=== PATIENT | female | born 1955 | race Hispanic/Latino ===

== ENCOUNTER → 2016-11-07 | Outpatient (CLI) | payer MEDICARE, MEDICAID ==
--- NOTE | 2016-11-07 10:47 | RAD ---
EXAM DESCRIPTION: Right wrist series CLINICAL HISTORY: Right hand pain COMPARISON: None. TECHNIQUE: Three views were submitted for evaluation. FINDINGS: Healing styloid process fracture of ulna and distal radial fracture. The fracture lines are less apparent on today's exam. The scapholunate interval is again widened suggesting ligamentous injury. IMPRESSION: Healing distal radial and ulna fractures. Electronically signed by: Dani Rae MD 11/07/2016 10:45
--- NOTE | 2016-11-07 10:48 | RAD ---
EXAM DESCRIPTION: XR CHEST 2 VIEWS CLINICAL HISTORY: PERSISTENT COUGH COMPARISON: None Available. TECHNIQUE: PA/lateral FINDINGS: There is no cardiac or pulmonary abnormality. Mildly tortuous descending aorta. The lungs are clear. There is no effusion. Prior cervical fusion and bilateral lateral rotator cuff repair. IMPRESSION: No acute findings on today's study. Electronically signed by: Dani Rae MD 11/07/2016 10:46
== END ==
LOC: RAD 09:04
PROVIDERS: ATTEND Orthopaedic Surgery
DX: R06.00 Dyspnea, unspecified (principal); S52.501A Unspecified fracture of the lower end of right radius, initial encounter for closed fracture

== ENCOUNTER 2017-02-11 19:59 | Emergency (ER) | payer MEDICARE, MEDICAID ==
--- NOTE | 2017-02-11 20:39 | ED.PDOC ---
History of Present Illness - General Chief Complaint: Skin/Abrasion/Tear Stated Complaint: painful rash right side chest and chest wall pain Time Seen by Provider: 02/11/17 20:15 Source: patient Exam Limitations: no limitations - History of Present Illness Initial Comments: Ms. Josefa Ashford 61 y/o female with HTN stated she had sharp intermittent right sided chest wall pain 3 weeks ago and 2 weeks later red skin rash came out accompanied by above pain symptoms usually gets worse at night and on waking up in am. Timing/Duration: other - 3 weeks Severity: moderate Improving Factors: nothing Worsening Factors: nothing Associated Symptoms: other - see hpi Allergies/Adverse Reactions: Allergies Acetaminophen [From Tylenol] Allergy (Verified 08/21/16 13:24) Fentanyl Allergy (Verified 08/21/16 13:24) Hydrocodone Allergy (Verified 08/21/16 13:24) Ibuprofen [From Motrin] Allergy (Verified 08/21/16 13:24) Ketorolac Tromethamine [From Toradol] Allergy (Verified 08/21/16 13:24) Methadone Allergy (Verified 08/21/16 13:24) Morphine Allergy (Verified 08/21/16 13:24) Morphine and Related Allergy (Verified 08/21/16 13:24) Naproxen [From Naprosyn] Allergy (Verified 08/21/16 13:24) Oxycodone [From Oxycontin] Allergy (Verified 08/21/16 13:24) Trazodone Allergy (Verified 08/21/16 13:24) Home Medications: Ambulatory Orders Clobetasol Propionate 0.05 % EX PRN 11/02/14 Clonazepam [Klonopin] 1 mg PO TID 11/02/14 Conjugated Estrogens [Premarin] 0.625 mg PO QD 11/02/14 Diclofenac Sodium (Topical) [Voltaren] 1 % TD BID 11/02/14 Promethazine Tab [Phenergan Tablet] 25 mg PO Q6H PRN 11/02/14 Rizatriptan Benzoate [Maxalt] 10 mg PO DAILY PRN 11/02/14 Tramadol HCl 50 mg PO QID PRN 11/02/14 Valsartan-Hydrochlorothiazide [Valsartan/Hydrochlorothia 320-12.5 mg] 1 each PO DAILY 11/02/14 Ziprasidone HCl [Geodon] 40 mg PO DAILY 11/02/14 Cephalexin Monohydrate [Keflex] 500 mg PO Q8H #30 cap 08/13/16 Collagenase [Santyl] 250 unit EX DAILY #1 oin 08/21/16 Sulfamethoxazole-Trimethoprim [Bactrim Ds 800-160 mg] 1 tab PO BID #20 tab 08/21 Acyclovir [Zovirax] 800 mg PO Q6HRS #30 tab 02/11/17 Gabapentin 300 mg PO TID #30 cap 02/11/17 predniSONE [Prednisone] 20 mg PO BID #30 tab 02/11/17 Review of Systems - Review of Systems Constitutional: States: no symptoms reported EENTM: States: no symptoms reported Respiratory: States: no symptoms reported Cardiology: States: no symptoms reported Gastrointestinal/Abdominal: States: no symptoms reported Genitourinary: States: no symptoms reported Musculoskeletal: States: see HPI Skin: States: see HPI Neurological: States: other - chronic neck/back pain Endocrine: States: no symptoms reported Hematologic/Lymphatic: States: no symptoms reported Past Medical History (General) - Patient Medical History Hx Seizures: No Hx Stroke: No Hx Dementia: Yes Hx Asthma: No Hx of COPD: No Hx Cardiac Disorders: No Hx Congestive Heart Failure: No Hx Pacemaker: No Hx Hypertension: Yes Hx Thyroid Disease: No Hx Diabetes: No Hx Gastroesophageal Reflux: No Hx Renal Disease: No Hx Cancer: No Hx of HIV: No Hx Hepatitis C: No Hx MRSA: No Surgical History: other - hysterectomy,rotator cuff left,c-spine,lumbar spine Other Surgeries:: mammogram multiple - Vaccination History Hx Tetanus, Diphtheria Vaccination: No Hx Influenza Vaccination: No Hx Pneumococcal Vaccination: No - Social History Hx Tobacco Use: No Hx Chewing Tobacco Use: No Hx Alcohol Use: No Hx Substance Use: No Hx Substance Use Treatment: No Hx Depression: Yes Hx Physical Abuse: No Hx Emotional Abuse: No Hx Suspected Abuse: No - Female History Patient is a Female of Child Bearing Age (10 -59 yrs old): No Patient : No Family Medical History - Family History Mother Family History: No Known Living Status: Hx Family Asthma: No Hx Family Hypertension: Yes - mom and brother Hx Family Diabetes: Yes - brother Physical Exam - Physical Exam General Appearance: Alert, Comfortable, No apparent distress Eye Exam: bilateral normal Ears, Nose, Throat: hearing grossly normal, normal ENT inspection, normal pharynx Neck: non-tender, full range of motion, supple, normal inspection Respiratory: chest non-tender, lungs clear, normal breath sounds, no respiratory distress, no accessory muscle use Cardiovascular/Chest: normal peripheral pulses, regular rate, rhythm, no edema, no gallop, no JVD, no murmur Peripheral Pulses: radial,right: 2+, radial,left: 2+ Gastrointestinal/Abdominal: normal bowel sounds, non tender, soft, no organomegaly, no pulsatile mass Back Exam: normal inspection, no CVA tenderness, no vertebral tenderness Extremity: normal range of motion, non-tender, normal inspection Neurologic: no motor/sensory deficits, alert, normal mood/affect, oriented x 3 Skin Exam: normal color, warm/dry, rash - dry maculopapular rash extending to right infrascapular area Lymphatic: no adenopathy Departure - Departure Clinical Impression: HZV (herpes zoster virus) post herpetic neuralgia Time of Disposition: 20:53 Disposition: Discharge to Home or Self Care Instructions: Shingles Referrals: GM BRADLEY [Primary Care Provider] - 1-2 Weeks Prescriptions: Acyclovir [Zovirax] 800 mg PO Q6HRS #30 tab Gabapentin 300 mg PO TID #30 cap predniSONE [Prednisone] 20 mg PO BID #30 tab Home Medications: Ambulatory Orders Clobetasol Propionate 0.05 % EX PRN 11/02/14 Clonazepam [Klonopin] 1 mg PO TID 11/02/14 Conjugated Estrogens [Premarin] 0.625 mg PO QD 11/02/14 Diclofenac Sodium (Topical) [Voltaren] 1 % TD BID 11/02/14 Promethazine Tab [Phenergan Tablet] 25 mg PO Q6H PRN 11/02/14 Rizatriptan Benzoate [Maxalt] 10 mg PO DAILY PRN 11/02/14 Tramadol HCl 50 mg PO QID PRN 11/02/14 Valsartan-Hydrochlorothiazide [Valsartan/Hydrochlorothia 320-12.5 mg] 1 each PO DAILY 11/02/14 Ziprasidone HCl [Geodon] 40 mg PO DAILY 11/02/14 Cephalexin Monohydrate [Keflex] 500 mg PO Q8H #30 cap 08/13/16 Collagenase [Santyl] 250 unit EX DAILY #1 oin 08/21/16 Sulfamethoxazole-Trimethoprim [Bactrim Ds 800-160 mg] 1 tab PO BID #20 tab 08/21 Acyclovir [Zovirax] 800 mg PO Q6HRS #30 tab 02/11/17 Gabapentin 300 mg PO TID #30 cap 02/11/17 predniSONE [Prednisone] 20 mg PO BID #30 tab 02/11/17 Additional Instructions: FOLLOW UP WITH PRIMARY MD 02/14/2017 call for appointment
[2017-02-11] MEDS ORDERED: predniSONE 10 MG TAB PO ONE (20:51)
[2017-02-11] MEDS ORDERED: GABAPENTIN 300 MG CAP PO ONE (20:52)
[2017-02-11] MEDS ORDERED: ACYCLOVIR 200 MG CAP PO ONE (21:01)
[2017-02-11 21:40] VITALS: BP 107/69; TEMP 98.6; O2SAT 95
[2017-02-11] MEDS ORDERED: ACYCLOVIR 200 MG CAP PO SCH (22:00)
== END 2017-02-11 21:16 | disposition home or self-care (01) ==
LOC: ER 19:59
DX: B02.29 Other postherpetic nervous system involvement (principal); F03.90 Unspecified dementia, unspecified severity, without behavioral disturbance, psychotic disturbance, mood disturbance, and anxiety; I10 Essential (primary) hypertension; Z79.899 Other long term (current) drug therapy; Z88.6 Allergy status to analgesic agent; Z88.8 Allergy status to other drugs, medicaments and biological substances

== ENCOUNTER 2017-06-25 15:39 | Emergency (ER) | payer MEDICARE, MEDICAID ==
--- NOTE | 2017-06-25 16:07 | ED.PDOC ---
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 Occurred: just prior to arrival Severity: moderate Injuries/Pain Location: neck, lower extremity, other - wrist right Reason for Fall: lost balance Loss of Consciousness: no loss of consciousness Improving Factors: rest Worsening Factors: movement Associated Symptoms (Fall): denies symptoms Allergies/Adverse Reactions: Allergies Acetaminophen [From Tylenol] Allergy (Verified 08/21/16 13:24) Fentanyl Allergy (Verified 08/21/16 13:24) Hydrocodone Allergy (Verified 08/21/16 13:24) Ibuprofen [From Motrin] Allergy (Verified 08/21/16 13:24) Ketorolac Tromethamine [From Toradol] Allergy (Verified 08/21/16 13:24) Methadone Allergy (Verified 08/21/16 13:24) Morphine Allergy (Verified 08/21/16 13:24) Morphine and Related Allergy (Verified 08/21/16 13:24) Naproxen [From Naprosyn] Allergy (Verified 08/21/16 13:24) Oxycodone [From Oxycontin] Allergy (Verified 08/21/16 13:24) Trazodone Allergy (Verified 08/21/16 13:24) Home Medications: Ambulatory Orders Clobetasol Propionate 0.05 % EX PRN 11/02/14 Clonazepam [Klonopin] 1 mg PO TID 11/02/14 Conjugated Estrogens [Premarin] 0.625 mg PO QD 11/02/14 Diclofenac Sodium (Topical) [Voltaren] 1 % TD BID 11/02/14 Promethazine Tab [Phenergan Tablet] 25 mg PO Q6H PRN 11/02/14 Rizatriptan Benzoate [Maxalt] 10 mg PO DAILY PRN 11/02/14 Tramadol HCl 50 mg PO QID PRN 11/02/14 Valsartan-Hydrochlorothiazide [Valsartan/Hydrochlorothia 320-12.5 mg] 1 each PO DAILY 11/02/14 Ziprasidone HCl [Geodon] 40 mg PO DAILY 11/02/14 Cephalexin Monohydrate [Keflex] 500 mg PO Q8H #30 cap 08/13/16 Collagenase [Santyl] 250 unit EX DAILY #1 oin 08/21/16 Sulfamethoxazole-Trimethoprim [Bactrim Ds 800-160 mg] 1 tab PO BID #20 tab 08/21 Acyclovir [Zovirax] 800 mg PO Q6HRS #30 tab 02/11/17 Gabapentin 300 mg PO TID #30 cap 02/11/17 predniSONE 20 mg PO BID #30 tab 02/11/17 Review of Systems - Review of Systems Constitutional: States: no symptoms reported EENTM: States: no symptoms reported Respiratory: States: no symptoms reported Cardiology: States: no symptoms reported Gastrointestinal/Abdominal: States: no symptoms reported Genitourinary: States: no symptoms reported Musculoskeletal: States: see HPI Skin: States: no symptoms reported Past Medical History (General) - Patient Medical History Hx Seizures: No Hx Stroke: No Hx Dementia: Yes Hx Asthma: No Hx of COPD: No Hx Cardiac Disorders: No Hx Congestive Heart Failure: No Hx Pacemaker: No Hx Hypertension: Yes Hx Thyroid Disease: No Hx Diabetes: No Hx Gastroesophageal Reflux: No Hx Renal Disease: No Hx Cancer: No Hx of HIV: No Hx Hepatitis C: No Hx MRSA: No Hx Other PMH: Yes - cognitive impairment Surgical History: other - hysterectomy,shoulder ,c-spine/lumbar spine.vaginal mesh - Vaccination History Hx Tetanus, Diphtheria Vaccination: No Hx Influenza Vaccination: No Hx Pneumococcal Vaccination: No - Social History Hx Tobacco Use: No Hx Chewing Tobacco Use: No Hx Alcohol Use: No Hx Substance Use: No Hx Substance Use Treatment: No Hx Depression: Yes Hx Physical Abuse: No Hx Emotional Abuse: No Hx Suspected Abuse: No - Activities of Daily Living Patient Lives Alone: Yes Grooming Ability: Independent Eating (Feeding) Ability: Independent Toileting Ability: Independent - Female History Patient is a Female of Child Bearing Age (10 -59 yrs old): No Patient : No Physical Exam - Physical Exam General Appearance: Alert, Comfortable, No apparent distress Head Injury: no evidence of injury Eye Exam: bilateral normal ENT Exam: hearing grossly normal, no evidence of ENT injury, no dental injury, other - paraspinal muscle spasm neck muscle left Peripheral Pulses: radial,right: 1+, radial,left: 1+ Cardiovascular/Respiratory: regular rate, rhythm, no M/R/G, other - no rib tenderness Gastrointestinal/Abdominal: normal bowel sounds, non tender, soft Back Exam: normal inspection, no CVA tenderness Extremity Exam: no evidence of injury, pain with movement Neurologic: no motor/sensory deficits, alert, oriented x 3 Skin Exam: normal color - Louis Coma Score Best Eye Response (Louis): (4) open spontaneously Best Verbal Response ([place]): (5) oriented Best Motor Response ([place]): (6) obeys commands Louis Total: 15 Departure - Departure Clinical Impression: Fall (on) (from) other stairs and steps, initial encounter, Neck and shoulder pain Sprain of carpal joint of wrist Qualifiers: Laterality: right Pain, knee Qualifiers: Chronicity: unspecified Laterality: left Qualified Code(s): M25.562 - Pain in left knee Time of Disposition: 17:27 Disposition: Discharge to Home or Self Care Condition: Fair Instructions: DI for Wrist Sprain, Wrist Sprain Referrals: GM BRADLEY [Referring] - 1-2 Weeks Home Medications: Ambulatory Orders Clobetasol Propionate 0.05 % EX PRN 11/02/14 Clonazepam [Klonopin] 1 mg PO TID 11/02/14 Conjugated Estrogens [Premarin] 0.625 mg PO QD 11/02/14 Diclofenac Sodium (Topical) [Voltaren] 1 % TD BID 11/02/14 Promethazine Tab [Phenergan Tablet] 25 mg PO Q6H PRN 11/02/14 Rizatriptan Benzoate [Maxalt] 10 mg PO DAILY PRN 11/02/14 Tramadol HCl 50 mg PO QID PRN 11/02/14 Valsartan-Hydrochlorothiazide [Valsartan/Hydrochlorothia 320-12.5 mg] 1 each PO DAILY 11/02/14 Ziprasidone HCl [Geodon] 40 mg PO DAILY 11/02/14 Cephalexin Monohydrate [Keflex] 500 mg PO Q8H #30 cap 08/13/16 Collagenase [Santyl] 250 unit EX DAILY #1 oin 08/21/16 Sulfamethoxazole-Trimethoprim [Bactrim Ds 800-160 mg] 1 tab PO BID #20 tab 08/21 Acyclovir [Zovirax] 800 mg PO Q6HRS #30 tab 02/11/17 Gabapentin 300 mg PO TID #30 cap 02/11/17 predniSONE 20 mg PO BID #30 tab 02/11/17 Additional Instructions: Continue with home medications;KEEP APPOINTMENT WITH ORTHOPEDIST
--- NOTE | 2017-06-25 16:38 | RAD ---
PROCEDURE: Knee,Left 2 or More Views Clinical History: fall Indication: Status post fall and left knee pain. Comparison: None . Technique: 2.0 Views of the left knee were done. Findings: There is no evidence of acute fractures or dislocations involving the bones of the left knee joint. There is mild suprapatellar joint effusion Chondrocalcinosis of the menisci is seen The soft tissues are radiographically unremarkable. There is no visualization of any radiopaque foreign bodies in the evaluated soft tissues. Impression: Negative for acute bony trauma involving the left knee Place of interpretation: [id number]. Electronically signed by: Holden Rico MD 06/25/2017 4:37 PM CDT Workstation: [id number]
--- NOTE | 2017-06-25 16:42 | RAD ---
EXAM DESCRIPTION: Wrist,Right 3 Views CLINICAL HISTORY: 61 years, Female, fall COMPARISON: None TECHNIQUE: AP/ lateral/ oblique views of the right wrist. FINDINGS: The bones are osteopenic with normal alignment with mild widening of the scapholunate articulation suggesting possible ligamentous injury. Deformity of the bony structures in several locations are evident including irregularity of the ulnar styloid and questionably either a new or old fracture of the radius near its articulation with the ulna. Additionally on the AP view the distal navicular appears abnormal. This has a more normal contour and alignment on the oblique and lateral view but the possibility of a subtle distal navicular fracture cannot be excluded. Either additional views with attention to the navicular or a CT examination of the wrist particularly if the patient remains symptomatic is recommended. IMPRESSION: 1. Irregularity of the ulnar styloid as well as the ulnar aspect of the distal radial articular surface which could represent a subtle acute or possibly old fracture. 2. At least mild scapholunate dissociation. 3. Abnormal appearance of the distal navicular pole on the AP view only. I am uncertain whether this represents the overlying trapezoid bone or a subtle distal pole navicular fracture. Consider either high-resolution CT examination of the wrist or additional navicular views. Electronically signed by: Paxton Werner MD 06/25/2017 4:40 PM CDT
--- NOTE | 2017-06-25 16:43 | RAD ---
EXAM DESCRIPTION: Cervical Spine,5 Views CLINICAL HISTORY: 61 years Female, fall COMPARISON: None. FINDINGS: Five views of the cervical spine demonstrate anterior fixation from C5 through C7 with intervertebral disc graft material at the two intervening disc spaces. Alignment is anatomic. The odontoid and ring of C1 and C2 appear intact. The neural foramina appear adequate. No fracture or dislocation seen. IMPRESSION: Previous internal fixation of the lower cervical spine C5-C7 with anterior plating and disc graft material. No acute injury noted. Electronically signed by: Paxton Werner MD 06/25/2017 4:42 PM CDT
[2017-06-25 16:46] VITALS: TEMP 98.6; O2SAT 94
[2017-06-25 17:52] VITALS: BP 125/90
== END 2017-06-25 17:53 | disposition home or self-care (01) ==
LOC: ER 15:39
DX: M25.562 Pain in left knee (principal); I10 Essential (primary) hypertension; F03.90 Unspecified dementia, unspecified severity, without behavioral disturbance, psychotic disturbance, mood disturbance, and anxiety; Z88.6 Allergy status to analgesic agent; Z88.8 Allergy status to other drugs, medicaments and biological substances; Z79.899 Other long term (current) drug therapy; W19.XXXA Unspecified fall, initial encounter; Y92.9 Unspecified place or not applicable

== ENCOUNTER → 2017-08-01 | Outpatient (CLI) | payer MEDICARE, MEDICAID | END | disposition home or self-care (01) | LOC: LAB.O 16:48 | PROVIDERS: ATTEND Nurse Practitioner Family | DX: B37.3 Candidiasis of vulva and vagina (principal) ==

== ENCOUNTER → 2017-09-14 | Outpatient (CLI) | payer MEDICARE, MEDICAID ==
--- NOTE | 2017-09-15 15:29 | MRI ---
EXAM DESCRIPTION: Cervical Spine CLINICAL HISTORY: CERVICALGIA COMPARISON: None Available. TECHNIQUE: Multiplanar images of the cervical spine were submitted without the administration of contrast FINDINGS: There are postoperative changes from C5 through C7. There is nonspecific increased T2 signal intensity in the C4 vertebral body. No definite acute abnormality of the configuration of the vertebral body is seen. At C3-4 there is moderately severe left neuroforaminal narrowing. There is mild central canal narrowing and moderately severe left lateral recess narrowing at this level. No significant stenosis is seen elsewhere in the central canal or neural foramina. No significant spondylolisthesis is seen. No other acute abnormality is identified. There is no evidence of epidural hematoma. Postoperative changes are present but there is no evidence of acute fluid collection in the soft tissues. No abnormal prevertebral soft tissue swelling. Cord signal is normal. IMPRESSION: No acute abnormalities. Stenoses as above. Electronically signed by: Kyler Evans 09/15/2017 3:28 PM [facility]
--- NOTE | 2017-09-16 12:50 | US ---
EXAM DESCRIPTION: Abdomen, complete CLINICAL HISTORY: 62 years Female EPIGASTRIC PN COMPARISON: None TECHNIQUE: Real-time sonography of the abdomen was performed. FINDINGS: There is diffuse acoustical shadowing in the region of the gallbladder, which was felt by the technologist to be contracted, with the patient in a nonfasting state. The appearance could be due to shadowing from bowel gas, but a gallbladder full of stones is not excluded. The common hepatic duct measures about 5 mm in diameter. The liver and spleen are unremarkable, with no evidence of enlargement. No gross pancreatic mass or enlargement is identified, although evaluation is limited in the region of the pancreatic tail. The abdominal aorta shows no evidence of aneurysm. Maximum diameter in the proximal portion is 2 cm. The kidneys are unremarkable, without evidence of mass or hydronephrosis. The right kidney measures about 8.9 cm in length and the left kidney 10.4 cm in length. IMPRESSION: Insufficient evaluation of the gallbladder. Please see comments above. A repeat study of the gallbladder is suggested with the patient fasting. Otherwise essentially unremarkable examination. Electronically signed by: Shukri Saez 09/16/2017 12:48 PM [facility]
== END | disposition home or self-care (01) ==
LOC: MRI 14:49
PROVIDERS: ATTEND Nurse Practitioner Family
DX: R10.13 Epigastric pain (principal); M54.2 Cervicalgia

== ENCOUNTER → 2017-11-29 | Outpatient (CLI) | payer MEDICARE, MEDICAID ==
--- NOTE | 2017-12-01 13:52 | RAD ---
Four views of the right shoulder. INDICATION: Right shoulder pain. COMPARISON: None. FINDINGS: Numerous anchor devices project over the right humeral head. Anterior cervical spinal fusion hardware identified. No acute fracture, dislocation or suspicious osseous lesions are identified. Coracoclavicular and acromioclavicular spaces are preserved. There are mild hypertrophic degenerative changes of the acromioclavicular joint. Visualized lung parenchyma appears well aerated. Soft tissues have a normal radiographic appearance. Impression: No radiographic evidence for acute osseous abnormality. Electronically signed by: Ajit Wilson MD 12/01/2017 1:51 PM [facility] Workstation: [id number]
== END ==
LOC: RAD 08:32
PROVIDERS: ATTEND Orthopaedic Surgery
DX: M25.511 Pain in right shoulder (principal)

== ENCOUNTER → 2017-12-06 | Outpatient (CLI) | payer MEDICARE, MEDICAID ==
--- NOTE | 2017-12-06 14:43 | MRI ---
MRI right shoulder without contrast INDICATION: Rotator cuff syndrome previous surgery TECHNIQUE: Noncontrast MR imaging right shoulder standard protocol FINDINGS: There is metal artifact related to hardware obscuring portions of the distal supraspinatus and proximal humerus as well as the distal subscapularis and portions of the bicep. Evaluation of this area with CT arthrogram may be considered. There is up to grade 4 fatty atrophy and volume loss of the inferior infraspinatus muscle belly. Otherwise grade 1-2 marbling throughout the shoulder Minimal hypertrophy of the AC joint. There is interstitial delamination-type partial tearing of the distal supraspinatus and infraspinatus fairly high-grade on sagittal images partially obscured on the coronal images. Mild subacromial and subdeltoid bursitis. No displaced labral tear. No advanced glenohumeral arthrosis. IMPRESSION: Obscuration of portions of the right shoulder by the metal consider CT arthrogram Interstitial partial tears of the supraspinatus and infraspinatus with partial delamination Mild subacromial and subdeltoid bursal edema Mild AC joint osteoarthrosis Multifocal muscle atrophy most pronounced in the infraspinatus focally up to grade 4 and more generalized grade 1-2 Electronically signed by: Trae Moreno MD 12/06/2017 2:42 PM [employer]
== END ==
LOC: MRI 13:00
PROVIDERS: ATTEND Orthopaedic Surgery
DX: M75.101 Unspecified rotator cuff tear or rupture of right shoulder, not specified as traumatic (principal)

== ENCOUNTER → 2018-01-01 | Outpatient (CLI) | payer MEDICARE, MEDICAID ==
--- NOTE | 2018-01-01 14:26 | RAD ---
Right shoulder arthrogram HISTORY: Prior rotator cuff surgical repair. Recurrent pain COMPARISON: MRI of right shoulder from December 06, 2017 TECHNIQUE: Patient was brought to the fluoroscopic suite. Risks and benefits of the procedure were thoroughly discussed, and she indicated comprehension as well as written consent for the procedure. Patient was placed in supine position on the fluoroscopic table with external rotation of the right shoulder. Usual sterile prep and drape procedure were applied to the skin over the anterior shoulder joint. The venous infusion with 1% lidocaine solution was used to achieve ankle anesthesia. A 22-gauge spinal needle was then inserted under intermittent fluoroscopic guidance into the anterior inferior aspect of the glenohumeral articulation. Approximately 10 mL of contrast (5 mL Omnipaque 300 mixed with 10 mL saline) was administered through the spinal needle. Needle was withdrawn. Hemostasis at the access site was achieved by manual pressure. 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 Unremarkable contrast administration into the shoulder joint. Gentle manual exercise of the shoulder with accompanying fluoroscopy Demonstrate contrast distribution through anterior and posterior aspect of the shoulder joint. No obvious contrast extravasation into the overlying subacromial subdeltoid bursa. Patient fully tolerated the procedure and was sent to CT for further imaging. Total fluoroscopic time of 1.0 minute. Total radiation dose of 46.87 mGy IMPRESSION: Unremarkable right shoulder arthrogram in preparation for CT imaging. No fluoroscopic evidence of full-thickness rotator cuff tear Electronically signed by: Matthew Chi MD 01/01/2018 2:25 PM [employer]
--- NOTE | 2018-01-01 15:06 | CT ---
CT of right upper extremity without intravenous contrast HISTORY: Status post rotator cuff repair. Recurrent pain COMPARISON: MRI of right shoulder performed on December 06, 2017 TECHNIQUE: Routine CT of the right shoulder without intravenous contrast administration. There is arthrographic administration of contrast in the shoulder joint prior to imaging. Details of the arthrogram procedure will be reported separately. FINDINGS: Unremarkable bony alignment in right shoulder joint without fracture nor dislocation. Surgical anchors identified in lateral aspect of the humeral head. There is moderate glenohumeral and acromioclavicular arthrosis. Arthrographic ligamentous or contrast is distributed in unremarkable fashion in the shoulder joint without extension into the overlying subacromial subdeltoid bursa. No obvious soft tissue injury around the shoulder joint given limitations of noncontrast evaluation. No concerning lymphadenopathy and right axilla. Visualized portions of right upper lung are devoid of concerning process. IMPRESSION: No full-thickness rotator cuff injury along rotator cuff in right shoulder. No obvious bony injury in right shoulder. Glenohumeral and acromioclavicular arthrosis. Electronically signed by: Matthew Chi MD 01/01/2018 3:05 PM [facility]
--- NOTE | 2018-01-01 15:17 | MRI ---
EXAM: MRI of cervical spine without intravenous contrast HISTORY: CERVICALGIA COMPARISON: MRI of September 14, 2017 TECHNIQUE: Routine MRI protocol for cervical spine without intravenous contrast administration FINDINGS: Again seen are changes of prior ACDF from C5 through C7. Bony alignment at craniocervical and atlantooccipital junctions, including atlantoaxial interval, are maintained. There is mildly straightened cervical lordosis. Vertebral heights in nonsurgical levels are intact without interval compression injury. No spondylolysis nor spondylolisthesis is identified. Marrow signal characteristics in the nonsurgical levels are within normal limits without concerning edema to indicate acute/recent injury nor inflammation nor marrow infiltration. Facet joints demonstrate unremarkable alignment bilaterally. Spinous processes are intact. Cervical cord is morphologically unremarkable in appearance without focal expansile nor atrophic process, nor abnormal signal abnormality. Paraspinal soft tissue abnormality are within normal limits. At C2-3 level, disc height is maintained. Central canal and neuroforamen bilaterally are patent. At C3-4 level, disc height is maintained. Stable 2 mm posterior disc extrusion broadly flattening the ventral margin without impacting the ventral cord. Stable lateral extension of extruded disc toward both lateral recesses, combine with uncovertebral hypertrophy, contribute to stable mild right and severe left neuroforaminal stenosis At C4-5 level, disc height remains obscured by metallic artifacts. Stable posterior disc extrusion flattens the ventral thecal margin and flatten the ventral cord. Mild central canal stenosis is unchanged (with AP dimension of 8 mm near midline). Stable mild right and [id number] left neuroforaminal stenosis At C5-6 level, disc height is obscured by metallic artifact. Central canal and neuroforamen remain patent. At C6-7 level, disc height is obscured by metallic artifacts. Either stable posterior disc extrusion or bony hypertrophy continue to flatten the ventral thecal margin and provide stable mild central canal stenosis (AP dimension of 8 to 9 mm near midline). Neuroforamen bilaterally are stably patent. As C7-T1 level, disc height is stable. Central canal and neuroforamen bilaterally are patent. IMPRESSION: 1. Stable postsurgical changes. No acute or recent bony injury in nonsurgical portions of cervical spine 2. No extrinsic compression nor myelomalacia nor demyelination in the cervical cord. 3. Stable posterior disc extrusion in C3-4 and C4-5 disc levels. No significant central canal stenosis in the cervical region. 4. Stable extent of neural foraminal stenosis in C3-4, C4-5, and C6-7 levels. Electronically signed by: Matthew Chi MD 01/01/2018 3:16 PM [employer]
== END ==
LOC: CT 13:30
PROVIDERS: ATTEND Orthopaedic Surgery
DX: M50.21 Other cervical disc displacement, high cervical region (principal); M50.221 Other cervical disc displacement at C4-C5 level; M75.101 Unspecified rotator cuff tear or rupture of right shoulder, not specified as traumatic

== ENCOUNTER 2018-01-17 16:54 | Emergency (ER) | payer MEDICARE, MEDICAID ==
[2018-01-17 17:20] VITALS: BP 125/85; TEMP 99.6; O2SAT 97
--- NOTE | 2018-01-17 17:34 | ED.PDOC ---
History of Present Illness - General Chief Complaint: Dental/Mouth Stated Complaint: facial edema Time Seen by Provider: 01/17/18 17:24 Source: patient Exam Limitations: no limitations - History of Present Illness Initial Comments: PT PRESENTS TO THE ED WITH COMPLAINT OF RIGHT SIDED FACIAL SWELLING X 1 DAY AFTER HAVING A TOOTH EXTRACTED YESTERDAY. PT WAS SENT IN BY DENTIST (DR. MCLEOD ) WHO I SPOKE WITH OVER THE PHONE PRIOR TO PATIENTS ARRIVAL. HE STATED THAT PT WAS NON COMPLIANT WITH ABX PRESCRIBED BY HIS OFFICE. Timing/Duration: this morning Severity: moderate EENT Location: eye (R), facial Improving Factors: cold therapy Worsening Factors: nothing Associated Symptoms: facial pain/swelling, tooth pain Allergies/Adverse Reactions: Allergies Acetaminophen [From Tylenol] Allergy (Verified 08/21/16 13:24) Fentanyl Allergy (Verified 08/21/16 13:24) Hydrocodone Allergy (Verified 08/21/16 13:24) Ibuprofen [From Motrin] Allergy (Verified 08/21/16 13:24) Ketorolac Tromethamine [From Toradol] Allergy (Verified 08/21/16 13:24) Methadone Allergy (Verified 08/21/16 13:24) Morphine Allergy (Verified 08/21/16 13:24) Morphine and Related Allergy (Verified 08/21/16 13:24) Naproxen [From Naprosyn] Allergy (Verified 08/21/16 13:24) Oxycodone [From Oxycontin] Allergy (Verified 08/21/16 13:24) Trazodone Allergy (Verified 08/21/16 13:24) Home Medications: Ambulatory Orders Clobetasol Propionate 0.05 % EX PRN 11/02/14 Clonazepam [Klonopin] 1 mg PO TID 11/02/14 Conjugated Estrogens [Premarin] 0.625 mg PO QD 11/02/14 Diclofenac Sodium (Topical) [Voltaren] 1 % TD BID 11/02/14 Promethazine Tab [Phenergan Tablet] 25 mg PO Q6H PRN 11/02/14 Rizatriptan Benzoate [Maxalt] 10 mg PO DAILY PRN 11/02/14 Tramadol HCl 50 mg PO QID PRN 11/02/14 Valsartan-Hydrochlorothiazide [Valsartan/Hydrochlorothia 320-12.5 mg] 1 each PO DAILY 11/02/14 Ziprasidone HCl [Geodon] 40 mg PO DAILY 11/02/14 Cephalexin Monohydrate [Keflex] 500 mg PO Q8H #30 cap 08/13/16 Collagenase [Santyl] 250 unit EX DAILY #1 oin 08/21/16 Sulfamethoxazole-Trimethoprim [Bactrim Ds 800-160 mg] 1 tab PO BID #20 tab 08/21 Acyclovir [Zovirax] 800 mg PO Q6HRS #30 tab 02/11/17 Gabapentin 300 mg PO TID #30 cap 02/11/17 predniSONE 20 mg PO BID #30 tab 02/11/17 Review of Systems - Review of Systems Constitutional: Denies: chills, fever EENTM: States: see HPI, mouth swelling. Denies: eye pain, blurred vision, double vision Respiratory: Denies: cough Cardiology: Denies: chest pain, palpitations Past Medical History (General) - Patient Medical History Hx Seizures: No Hx Stroke: No Hx Dementia: Yes Hx Asthma: No Hx of COPD: No Hx Cardiac Disorders: No Hx Congestive Heart Failure: No Hx Pacemaker: No Hx Hypertension: Yes Hx Thyroid Disease: No Hx Diabetes: No Hx Gastroesophageal Reflux: No Hx Renal Disease: No Hx Cancer: No Hx of HIV: No Hx Hepatitis C: No Hx MRSA: No Surgical History: Hysterectomy - Vaccination History Hx Tetanus, Diphtheria Vaccination: No Hx Influenza Vaccination: No Hx Pneumococcal Vaccination: No - Social History Hx Tobacco Use: No Hx Chewing Tobacco Use: No Hx Alcohol Use: No Hx Substance Use: No Hx Substance Use Treatment: No Hx Depression: Yes Hx Physical Abuse: No Hx Emotional Abuse: No Hx Suspected Abuse: No - Female History Patient : No Family Medical History - Family History Mother Family History: No Known Living Status: Hx Family Asthma: No Hx Family Hypertension: Yes - mom and brother Hx Family Diabetes: Yes - brother Physical Exam - Physical Exam General Appearance: Alert, No apparent distress, Well Developed, Well Groomed, Well Hydrated Eye Exam: right other - NO PAIN WITH EOM, NO PROPTOSIS, bilateral normal Throat Exam: normal mouth inspection - CAP OVER EXTRACTION SITE, NO SIGNIFICAN GINGIVAL SWELLING OR TENDERNESS, pharynx normal, other - MODERATE SWELLING AND TENDERNESS TO R PERIORBITAL REGION AND RIGHT CHEEK Neck: non-tender, full range of motion Neurologic: alert, normal mood/affect, oriented x 3 Skin Exam: warm/dry Progress - Progress Progress: 01/17/18 17:37 PT STATES THAT SHE HAS AN APPOINTMENT WITH THE [facility] AT 5:45 AND WOULD LIKE TO COME BACK TOMORROW. I EXPLAINED TO PATIENT THE DANGER OF DELAYING TREATMENT OF THE INFECTION AND EXPLAINED THE RISK OF VISION LOSS IF CELLULITIS SPREADS TO THE ORBITAL FOSSA. PT UNDERSTANDS RISK AND WISHES TO LEAVE ANYWAY. Departure - Departure Clinical Impression: Facial cellulitis, Periorbital cellulitis of right eye, Noncompliance with medication regimen Time of Disposition: 17:40 Disposition: Left Against Medical Advice Condition: Fair Departure Forms: ED Discharge - Pt. Copy, Patient Portal Self Enrollment Home Medications: Ambulatory Orders Clobetasol Propionate 0.05 % EX PRN 11/02/14 Clonazepam [Klonopin] 1 mg PO TID 11/02/14 Conjugated Estrogens [Premarin] 0.625 mg PO QD 11/02/14 Diclofenac Sodium (Topical) [Voltaren] 1 % TD BID 11/02/14 Promethazine Tab [Phenergan Tablet] 25 mg PO Q6H PRN 11/02/14 Rizatriptan Benzoate [Maxalt] 10 mg PO DAILY PRN 11/02/14 Tramadol HCl 50 mg PO QID PRN 11/02/14 Valsartan-Hydrochlorothiazide [Valsartan/Hydrochlorothia 320-12.5 mg] 1 each PO DAILY 11/02/14 Ziprasidone HCl [Geodon] 40 mg PO DAILY 11/02/14 Cephalexin Monohydrate [Keflex] 500 mg PO Q8H #30 cap 08/13/16 Collagenase [Santyl] 250 unit EX DAILY #1 oin 08/21/16 Sulfamethoxazole-Trimethoprim [Bactrim Ds 800-160 mg] 1 tab PO BID #20 tab 08/21 Acyclovir [Zovirax] 800 mg PO Q6HRS #30 tab 02/11/17 Gabapentin 300 mg PO TID #30 cap 02/11/17 predniSONE 20 mg PO BID #30 tab 02/11/17
== END 2018-01-17 17:36 | disposition left against medical advice (07) ==
LOC: ER 16:54
DX: L03.213 Periorbital cellulitis (principal); Z91.14 Patient's other noncompliance with medication regimen; I10 Essential (primary) hypertension; F03.90 Unspecified dementia, unspecified severity, without behavioral disturbance, psychotic disturbance, mood disturbance, and anxiety; Z79.899 Other long term (current) drug therapy

== ENCOUNTER → 2018-09-17 | Outpatient (CLI) | payer MEDICARE, MEDICAID ==
--- NOTE | 2018-09-18 14:15 | RAD ---
Procedure: XR SHOULDER 2 OR MORE VIEWS Exam Date: 09/17/2018 10:06 AM [employer] Ordering Provider: ELENA GTZ Clinical Indication: PAIN IN LEFT SHOULDER Comparison: None FINDINGS: Prior rotator cuff repair. Prior Hill-Sachs deformity. There is no fracture or dislocation. The subacromial space is preserved. Mild acromioclavicular joint osteoarthritis. The glenohumeral joint has a normal appearance. No lytic or sclerotic lesions. IMPRESSION: 1. Nonacute exam of the left shoulder. 2. Mild a.c. joint osteoarthritis. 3. Prior postsurgical changes in prior Hill-Sachs. Electronically signed by: Harrison Gonzalez MD 09/18/2018 2:13 PM [facility]
== END ==
LOC: RAD 10:05
PROVIDERS: ATTEND Orthopaedic Surgery
DX: M19.012 Primary osteoarthritis, left shoulder (principal); Z98.890 Other specified postprocedural states

== ENCOUNTER → 2018-10-04 | Outpatient (CLI) | payer MEDICARE, MEDICAID ==
--- NOTE | 2018-10-06 16:02 | MRI ---
MRI left shoulder without contrast INDICATION: Shoulder pain previous surgery 2 years ago rotator cuff repair TECHNIQUE: Noncontrast MR imaging left shoulder FINDINGS: Metal artifact is noted at the greater tuberosity related to metal suture anchors with adjacent metallic artifact in soft tissues. Advanced grade 4 fatty atrophy infraspinatus. Otherwise grade 1-2 marbling in the remainder of the shoulder girdle. Limited assessment of the supraspinatus and infraspinatus due to metal artifact. Minimal bursal edema. Mild glenohumeral osteoarthrosis. The degree of infraspinatus atrophy suggesting remote/chronic atrophic rotator cuff tear. There is subscapularis tendinopathy without rupture or retraction. No bicep rupture or dislocation. IMPRESSION: Advanced fatty muscle atrophy infraspinatus muscle belly suggesting chronic atrophic rotator cuff tear/disuse Metal artifact from rotator cuff repair limiting the distal supraspinatus and infraspinatus Minimal bursal edema Electronically signed by: Trae Moreno MD 10/06/2018 4:01 PM [facility]
== END ==
LOC: MRI 09-23 08:34
PROVIDERS: ATTEND Orthopaedic Surgery
DX: M25.512 Pain in left shoulder (principal); M62.512 Muscle wasting and atrophy, not elsewhere classified, left shoulder; R60.0 Localized edema

== ENCOUNTER → 2019-01-20 | Outpatient (CLI) | payer MEDICARE, MEDICAID ==
--- NOTE | 2019-01-20 11:22 | RAD ---
EXAM DESCRIPTION: Shoulder,Left four x-ray Views CLINICAL HISTORY: M25.512 COMPARISON: None Available. TECHNIQUE: Four views of the left shoulder. FINDINGS: There is adequate internal and external rotation. Flattened superolateral humeral head could be old impaction injury from anterior dislocation or could be postoperative change. Normal alignment on transaxillary and transscapular Y views. Plate and screws in lower C-spine. Multiple screws in the proximal humerus. There is no acute fracture or dislocation. There are no significant degenerative changes observed. AC joint appears intact. No focal bone lesion. IMPRESSION: Negative for acute fracture or dislocation. Electronically signed by: Kelvin Crouch MD 01/20/2019 11:18 AM CDT
--- NOTE | 2019-01-21 12:18 | RAD ---
EXAM DESCRIPTION: Clavicle,Left CLINICAL HISTORY: 63 years Female, M25.512 COMPARISON: None. TECHNIQUE: 4 views of the left shoulder were obtained. FINDINGS: Changes of rotator cuff repair are identified. No acute fracture or dislocation. The glenohumeral and acromioclavicular joints are intact. IMPRESSION: Changes of prior rotator cuff repair. No other abnormality is visualized. Electronically signed by: Inna Saab MD 01/21/2019 12:15 PM CDT
== END ==
LOC: RAD 09:19
PROVIDERS: ATTEND Orthopaedic Surgery
DX: M25.512 Pain in left shoulder (principal)

== ENCOUNTER → 2019-02-28 | Outpatient (CLI) | payer MEDICARE, MEDICAID ==
--- NOTE | 2019-03-02 08:09 | MRI ---
EXAM DESCRIPTION: Cervical Spine: MRI. CLINICAL HISTORY: 63 years Female CERVICAL DISC DISORDER COMPARISON: MRI cervical spine 01/03/2018. TECHNIQUE: Multiplanar, high-field MRI, multiple sequences, non-contrast Cervical spine. FINDINGS: Again seen is ACDF C5-C7. Magnetic susceptibility artifact from the hardware. No abnormal fluid collections in the soft tissues or in the canal at these levels. No significant canal or neural foraminal narrowing at C4-C5. No significant canal or neural foraminal narrowing at C5-C6. Normal signal in the cord at these levels. C3-C4: Disc desiccation. Minimal posterior bulge. Left uncinate spur and minimal facet arthrosis resulting in mild neural foraminal stenosis. Canal and right neuroforamen are patent. Stable since the prior study. C4-C5: Disc desiccation and tiny posterior bulge almost abutting the cord. Moderate canal narrowing. Bilateral uncinate spur and bilateral facet hypertrophic arthrosis with moderate neural foraminal narrowing. C7-T1: Minimal disc desiccation. Minimal posterior bulge of the disc to the left of midline and minimal narrowing of the left neural foramen. Canal and right neuroforamen are patent. Circumscribed hyperintense T1 and T2 signal in the superior left C7 vertebral body consistent with a hemangioma. Normal signal in the C2-C3 and T1-T2 discs with no bulging. Disc spaces preserved. Canal and neural foramina are patent. Facet joints negative. Spinal alignment unremarkable.. No cord compression or cord edema. Atlantoaxial joint negative.. Base of the cerebellar tonsils is above the foramen magnum. Paravertebral soft tissues unremarkable. Vertebral bodies are not compressed at any level. Normal marrow signal in the remaining vertebral bodies and the posterior elements. IMPRESSION: 1. ACDF C5-C7 is stable with no bony or hardware complications. No abnormal fluid collections soft tissues or spinal canal. Normal signal in the cord. 2. Left uncinate spur and facet arthrosis at C3-C4 resulting in mild neural foraminal stenosis. Stable since the prior study. 3. Moderate canal and neural foraminal narrowing at C4-C5 is stable since the prior study. Electronically signed by: Kyler Lema MD 03/02/2019 8:07 AM CDT
== END ==
LOC: MRI 12:47
PROVIDERS: ATTEND Psychiatry & Neurology Neurology
DX: M50.123 Cervical disc disorder at C6-C7 level with radiculopathy (principal); M47.22 Other spondylosis with radiculopathy, cervical region

== ENCOUNTER → 2019-05-22 | Outpatient (CLI) | payer MEDICARE, MEDICAID ==
--- NOTE | 2019-05-22 13:59 | CT ---
PROVIDED CLINICAL HISTORY/REASON FOR EXAM: LOCALIZED LPRIMARY OSTEOARTHRITIS OF THE SHOULDER REGION LEFT STUDY TYPE/TECHNIQUE: CT UPPER EXTREMITY WITHOUT IV CONTRAST This exam was performed according to our departmental dose-optimization program, which includes automated exposure control, adjustment of the mA and/or kV according to patient size and/or use of iterative reconstruction technique. COMPARISON: January 20, 2019 FINDINGS: Visualized chest is unremarkable. Minimal atherosclerotic plaque in the aortic arch. No focal soft tissue swelling. No fluid collection. No adenopathy. Multiple screws and orthopedic hardware associated with the left humeral head. No hardware complication. Mild acromioclavicular osteoarthritis. Narrowing of the subacromial space. High riding humeral head. Small glenoid osteophytes. Small glenohumeral joint effusion. Fatty atrophy of the infraspinatus. No acute fracture or dislocation. IMPRESSION: Chronic degenerative changes about the left shoulder. No evidence of acute process. Electronically signed by: Clay Powell MD 05/22/2019 1:58 PM CDT
== END ==
LOC: CT 11:00
PROVIDERS: ATTEND Orthopaedic Surgery
DX: M19.012 Primary osteoarthritis, left shoulder (principal)

== ENCOUNTER → 2019-06-02 | Outpatient (CLI) | payer MEDICARE, MEDICAID | LOC: LAB.O 13:17 | PROVIDERS: ATTEND Orthopaedic Surgery | DX: Z01.818 Encounter for other preprocedural examination (principal) ==

== ENCOUNTER → 2019-06-04 | Outpatient (CLI) | payer MEDICARE, MEDICAID ==
--- NOTE | 2019-06-05 10:40 | RAD ---
EXAM DESCRIPTION: Hand,Left 3 Views CLINICAL HISTORY: PAIN IN LEFT HAND COMPARISON: None Available. TECHNIQUE: AP, lateral and oblique radiographs of the left hand. FINDINGS: The visualized bones appear well mineralized. No acute fracture or dislocation. The soft tissues appear grossly unremarkable. IMPRESSION: Grossly normal radiographs of the left hand. Electronically signed by: Giovany Rodney MD 06/05/2019 10:38 AM CDT
== END ==
LOC: RAD 13:40
PROVIDERS: ATTEND Orthopaedic Surgery
DX: M79.642 Pain in left hand (principal)

== ENCOUNTER 2019-09-05 07:24 | Day surgery (SDC) | payer MEDICARE, MEDICAID ==
[~2019-09-05 07:24] MED LIST: LACTATED RINGERS 1,000 ML ONE; LIDOCAINE 1% 10 ML VIAL INJ ONE; PROPOFOL 200 MG/20 ML VIAL IV ONE
[2019-09-05] MEDS ORDERED: PROCHLORPERAZINE INJ 10 MG/2 ML VIAL ONE (08:47)
[2019-09-05] MEDS ORDERED: diphenhydrAMINE HCL 50 MG/ML VIAL ONE (08:48)
[2019-09-05] MEDS ORDERED: KETOROLAC TROMETHAMINE INJ 30 MG/ML VIAL ONE (08:48)
[2019-09-05] MEDS ORDERED: LACTATED RINGERS 1,000 ML IVS ONE (08:55)
[2019-09-05] MEDS ORDERED: LACTATED RINGERS 1,000 ML ONE (11:04)
--- NOTE | 2019-09-05 11:18 | OP ---
DATE OF PROCEDURE: 09/05/19 PREOPERATIVE DIAGNOSIS: 1. Needing screening colonoscopy. POSTOPERATIVE DIAGNOSIS: 1. Colonic polyps. 2. Melanosis coli. PROCEDURE: 1. Colonoscopy. SURGEON: Gary Allison MD ANESTHESIA: General. FINDINGS: A 5 mm polyp at approximately the mid descending colon that was taken with a snare. Another forceps excision of a 2 mm polyp in the same area. Also, a forceps partial excision of a 2.5 mm polyp in the cecum. Due to excessive movement of the cecum, we were unable to repeat the biopsy to remove the entire polyp. PROCEDURE: The patient was made comfortable. Digital rectal exam was normal. The colonoscope was inserted. We noticed a very dark mucosa throughout, significant melanosis coli. We were able to pass and get into the cecum. There was a polyp at the very end of the cecum. We forceps biopsied this. She was just moving and snoring. We held pressure to get it to stabilize a little bit. I was able to get the majority, there was only a tiny edge left. We tried to repeat this. After multiple attempts, multiple minutes, would could not. It looked like a hyperplastic polyp. We will wait for pathology. Upon withdrawal, near the distal descending before the sigmoid, there was another polyp, more significant, probably 5 mm removed completely with a cold snare and then another 2 mm forceps excised in that area. The remainder of the exam was normal. The scope was withdrawn. She was taken to Recovery to be discharged. #[id number] cc: Dr. Kyler QUINTANA
[2019-09-05 13:13] VITALS: BP 107/77; TEMP 97.5; O2SAT 97
== END 2019-09-05 12:00 | disposition home or self-care (01) ==
LOC: AMB 07:24
PROVIDERS: ATTEND Surgery
DX: Z12.11 Encounter for screening for malignant neoplasm of colon (principal); D12.0 Benign neoplasm of cecum; D12.4 Benign neoplasm of descending colon; K63.89 Other specified diseases of intestine; I10 Essential (primary) hypertension; F32.9 Major depressive disorder, single episode, unspecified; F41.9 Anxiety disorder, unspecified; Z88.5 Allergy status to narcotic agent; Z79.899 Other long term (current) drug therapy
CPT/HCPCS: 45380; 45385; 88305; J0780; J1200; J1885; J3490; J7120

== ENCOUNTER → 2019-11-06 | Outpatient (CLI) | payer MEDICARE, MEDICAID ==
--- NOTE | 2019-11-06 15:29 | RAD ---
EXAM DESCRIPTION: Arthrogram Shoulder Left: RF CLINICAL HISTORY: SHOULDER PAIN prior trauma and left rotator cuff repair. Gradual recurrent onset of pain and dysfunction. COMPARISON: Post-arthrogram CT scan of the left shoulder same date. TECHNIQUE: The procedure was performed by Dr. Lema; explained to the patient with risks and benefits. The patient gave verbal and written consent. Contrast mixture of 10 mL non-ionic 300 contrast and 10 mL of sterile normal saline was prepared. Patient supine on the fluoroscopic table with left shoulder in external rotation. The anterior mid superior left glenohumeral joint was localized by fluoroscopy. The skin was marked, then prepped and draped in a sterile fashion. Intradermal, subcutaneous and intramuscular 1% Xylocaine was given for topical anesthesia. A 1.5 inch 25-gauge needle was introduced into the anterior superior left glenohumeral joint capsule under fluoroscopic visualization. A test injection of 2 cc of non-ionic 300 was performed under fluoroscopy. Additional 10 CC of contrast mixture was then injected under fluoroscopy. The patient tolerated the procedure well. Active exercise. Patient was transferred to the CT suite for spiral-axial and reconstruction imaging. No immediate complications. Single AP image of the left shoulder recorded for the patient's permanent medical record. Total fluoroscopic time was 1.8 minutes. DAP: 6.78 Gy-cm2. IMPRESSION: Successful, fluoroscopic guided arthrography of the left shoulder prior to CT left shoulder arthrogram. Electronically signed by: Kyler Lema MD 11/06/2019 3:28 PM [employer]
--- NOTE | 2019-11-06 16:43 | CT ---
CT arthrogram left shoulder INDICATION: Shoulder pain previous surgery TECHNIQUE: Helical CT images left shoulder post single contrast arthrography with multiplanar reformats This exam was performed according to our departmental dose-optimization program, which includes automated exposure control, adjustment of the mA and/or kV according to patient size and/or use of iterative reconstruction technique. FINDINGS: Multiple metallic suture anchors from supraspinatus/infraspinatus repair. There is marked thinning of both tendons. There is interstitial contrast extension. There is also bursal contrast extension. No complete retraction however. Findings indicate partial thickness tears. No subscapularis retraction or detachment. No bicep rupture or dislocation. Mild glenohumeral osteoarthrosis. Small AC joint possible previous subacromial decompression No gross displacement of the anchors. Muscle atrophy is up to grade 4 infraspinatus suggesting disuse or denervation. Grade 2 changes approaching grade 3 supraspinatus. Grade 3-4 atrophy teres minor. No detachment bicep labral anchor. No pronounced osteonecrosis of the humerus IMPRESSION: Thinning of the supraspinatus and infraspinatus tendons indicating partial thickness tear status post repair Bursal contrast extension without kim retraction of the tendons Mild glenohumeral osteoarthrosis Muscle atrophy most severe in the infraspinatus up to grade 4 with lower grade changes in the supraspinatus Electronically signed by: Trae Moreno MD 11/06/2019 4:42 PM [facility]
== END ==
LOC: CT 13:00
PROVIDERS: ATTEND Orthopaedic Surgery
DX: M19.012 Primary osteoarthritis, left shoulder (principal); M62.512 Muscle wasting and atrophy, not elsewhere classified, left shoulder; Z98.890 Other specified postprocedural states

== ENCOUNTER → 2019-12-01 | Outpatient (CLI) | payer MEDICARE, MEDICAID ==
--- NOTE | 2019-12-02 11:03 | MRI ---
EXAM DESCRIPTION: Cervical Spine: MRI. CLINICAL HISTORY: 64 years Female OTHER SPONDYLOSIS WITH MYELOPATHY CERVICAL REGION COMPARISON: Skin cervical spine without contrast February 2019. TECHNIQUE: Multiplanar, high-field MRI, multiple sequences, non-contrast Cervical spine. FINDINGS: ACDF C5-C7. Minimal magnetic susceptibility artifact associated with the hardware. No abnormal marrow edema. No paraspinal soft tissue mass or fluid or mass or fluid in the cervical canal. No cord compression. Minimal narrowing of the canal at the C3 C5 C6 level. Bilateral foramina are patent. Small uncinate spurs bilaterally C6-C7 but no neural foraminal stenosis. Mild narrowing of the canal. No change from the prior study. C3-C4: Disc desiccation posterior bulge abutting the ventral cord. Bilateral small uncinate spurs. Degenerative hypertrophy of the left facet joint. Mild narrowing right neural foramen and borderline left neural foramen stenosis. Facet joints are unremarkable. Moderate narrowing of the canal. No change from the prior study. C4-C5: Disc desiccation and posterior midline bulge abutting the cord. Left uncinate spur. Mild narrowing of the right neural foramen and moderate narrowing of the left neural foramen. Facet joints are unremarkable. Stable since the prior study. C7-T1: Minimal disc desiccation and disc space loss. Trace anterolisthesis. Left uncinate spur and mild left neural foraminal narrowing. Right neural foramen is patent. Minimal bilateral facet arthrosis. Stable hemangioma in the superior T1 endplate. No change from the prior study. Normal signal in the C2-3 and T1-T2 with no bulging. Disc spaces preserved. Canal and neural foramina are patent. Facet joints are unremarkable. Spinal alignment stable and anatomic.. No cord compression or cord edema. Atlantoaxial joint negative. Base of the cerebellar tonsils is above the foramen magnum. Paravertebral soft tissues unremarkable.. Vertebral bodies are not compressed at any level. Otherwise normal marrow signal in the remaining vertebral bodies and the posterior elements. 2.0 x 1.1 cm circumscribed well-defined mass subcutaneous tissues of the back to the left of the spine at the C7-T1 level. Most likely related to a sweat gland or hair follicle. Stable size since the prior study. IMPRESSION: 1. ACDF C5-C7 with no hardware or bony complications. No canal or neural foraminal stenosis. 2. C3-C4 borderline left neural foraminal stenosis related to hypertrophic left facet and left uncinate spur. No change from the prior study. Moderate canal narrowing at C3-4 and C4-5. Any new clinical finding since the prior study cannot be explained by the imaging findings on this study. Electronically signed by: Kyler Lema MD 12/02/2019 11:01 AM [facility]
== END ==
LOC: MRI 13:01
PROVIDERS: ATTEND Neurological Surgery
DX: M47.12 Other spondylosis with myelopathy, cervical region (principal); M43.22 Fusion of spine, cervical region; M48.02 Spinal stenosis, cervical region

== ENCOUNTER → 2020-03-05 | Outpatient (CLI) | payer MEDICARE, MEDICAID ==
--- NOTE | 2020-03-05 14:08 | RAD ---
EXAM DESCRIPTION: Cervical Spine, 2-3 Views CLINICAL HISTORY: 64 years Female, CERVICAL SPONDYLOSIS TECHNIQUE: 06/25/2017. views of the cervical spine were obtained. COMPARISON: None available. FINDINGS: ACDF hardware is noted traversing C4-C7 vertebral bodies. No evidence of spondylolysis or spondylolisthesis. The vertebral body heights are well-maintained with no acute compression deformity. Multilevel mild degenerative disc disease and uncovertebral joint arthropathy throughout the cervical spine. The visualized prevertebral and paravertebral soft tissues appear grossly unremarkable. IMPRESSION: ACDF hardware is noted traversing C4-C7 vertebral bodies. No evidence of spondylolysis or spondylolisthesis. Electronically signed by: Inna Saab MD 03/05/2020 2:06 PM CDT
--- NOTE | 2020-03-05 14:54 | MRI ---
EXAM DESCRIPTION: Cervical Spine CLINICAL HISTORY: 64 years Female, CERVICAL SPONDYLOSIS COMPARISON: MRI of the cervical spine dated 12/01/2019. TECHNIQUE: Multiplanar, multiecho imaging of the cervical spine was performed without gadolinium administration. FINDINGS: ACDF hardware is noted traversing C4-C7 vertebral bodies. The vertebral body heights are well-maintained with no acute compression deformity. Multilevel intervertebral disc space narrowing is noted. The visualized spinal cord demonstrates no signal abnormality. The visualized prevertebral and paravertebral soft tissues appear grossly unremarkable. C2-C3: Disc desiccation and loss of disc height. No disc herniation. No significant canal stenosis or neural foraminal narrowing. C3-C4: Disc desiccation and loss of disc height. 3 mm diffuse disc bulge with no significant central canal stenosis. Mild to moderate right and moderate to severe left neural foraminal narrowing is noted secondary to uncovertebral joint arthropathy. C4-C5: 4 mm posterior disc bulge with resultant mild to moderate central canal stenosis. The thecal sac measures 8mm. Mild right and moderate left neural foraminal narrowing is identified. C5-C6: No significant central canal stenosis or neural foraminal narrowing. No disc herniation. C6-C7: No evidence of disc herniation. No significant canal stenosis or neural foraminal narrowing. C7-T1: No evidence of disc herniation. No significant canal stenosis or neural foraminal narrowing. IMPRESSION: Intact ACDF hardware traversing C4-C7 vertebral bodies. Multilevel degenerative disc disease and uncovertebral joint arthropathy throughout the cervical spine with variable degrees of neural foraminal narrowing, worse at C3-C4 level on the left side. Electronically signed by: Inna Saab MD 03/05/2020 2:52 PM CDT
== END ==
LOC: MRI 13:30
PROVIDERS: ATTEND Neurological Surgery
DX: M50.31 Other cervical disc degeneration, high cervical region (principal); M12.9 Arthropathy, unspecified; M48.02 Spinal stenosis, cervical region; S46.002A Unspecified injury of muscle(s) and tendon(s) of the rotator cuff of left shoulder, initial encounter; Z98.1 Arthrodesis status

== ENCOUNTER → 2020-03-09 | Outpatient (CLI) | payer MEDICARE, MEDICAID ==
--- NOTE | 2020-03-09 15:15 | MRI ---
EXAM DESCRIPTION: Shoulder,Left CLINICAL HISTORY: 64 years Female, pain in left shoulder COMPARISON: CT of the left shoulder dated 11/06/2019. TECHNIQUE: Multiplanar multiecho imaging of the left shoulder was performed without gadolinium administration. FINDINGS: Severely limited examination due to susceptibility artifact from the hardware. The rotator cuff is not visualized and cannot be evaluated. Bone marrow of the humerus also cannot be evaluated. The subscapularis appears to be intact. Extra-articular portion of the biceps tendon also appears intact. IMPRESSION: Severely limited examination due to susceptibility artifact from the hardware. Subscapularis is intact. Supraspinatus, infraspinatus and teres minor cannot be evaluated due to the artifact. Electronically signed by: Inna Saab MD 03/09/2020 3:13 PM CDT
== END ==
LOC: MRI 13:30
PROVIDERS: ATTEND Neurological Surgery
DX: S46.002A Unspecified injury of muscle(s) and tendon(s) of the rotator cuff of left shoulder, initial encounter (principal); M47.12 Other spondylosis with myelopathy, cervical region

== ENCOUNTER 2020-11-12 12:27 | Emergency (ER) | payer MEDICARE, MEDICAID ==
[2020-11-12] MEDS ORDERED: PROMETHAZINE HCL INJ 25 MG in SODIUM CHLORIDE 0.9% 50ML 50 ML IVPB ONE (12:37)
[2020-11-12] MEDS ORDERED: SODIUM CHLORIDE 0.9% 1000ML 1,000 ML IVS ONE ×2 (12:37→14:23)
[2020-11-12] MEDS ORDERED: MEPERIDINE HCL 50 MG/ML VIAL IV ONE (12:37)
[2020-11-12 13:15] VITALS: TEMP 97
[2020-11-12] MEDS ORDERED: ALUMINUM & MAGNESIUM HYDROXIDE 30 ML UD PO ONE (13:28)
[2020-11-12] MEDS ORDERED: POTASSIUM CHLORIDE ELIXIR 20 MEQ/15 ML UD PO ONE (13:28)
--- NOTE | 2020-11-12 13:50 | RAD ---
EXAM DESCRIPTION: Abdomen Series CLINICAL HISTORY: 65 years Female, nv, headache COMPARISON: No recent comparison Findings: 3 view(s)/radiograph(s) Cardiac silhouette and pulmonary vasculature are within normal limits. No pneumothorax. No pleural effusion. The lungs are clear. Nonobstructive bowel gas pattern. No air-fluid level. No free air beneath the diaphragm. Moderate stool volume. No suspicious calcification. Osteopenia. Spinal fusion hardware. No acute osseous abnormality. Round radiopaque foreign body overlying the right upper quadrant/lower chest measuring 2.2 cm. IMPRESSION: No acute radiographic abnormality. Round radiopaque foreign body overlying the right upper quadrant/lower chest measuring 2.2 cm. This may be overlying artifact, however an ingested or aspirated foreign body is not excluded. Electronically signed by: Clay Powell MD 11/12/2020 1:48 PM CHIEF INSPECTOR
[2020-11-12] MEDS ORDERED: ONDANSETRON INJ 4 MG/2 ML VIAL IV ONE (14:20)
[2020-11-12] MEDS ORDERED: ONDANSETRON ODT 8 MG TAB SL ONE (14:20)
[2020-11-12] MEDS ORDERED: SUMAtriptan SUCCINATE INJ 6 MG/0.5 ML VIAL SUBCU ONE (15:19)
[2020-11-12] MEDS ORDERED: DEXAMETHASONE INJ 4 MG/ML VIAL IV ONE (15:31)
[2020-11-12] MEDS ORDERED: KCL 20MEQ/WATER FOR INJ 100ML 20 MEQ in PREMIX BAG 1 BAG IVPB ONE (15:41)
[2020-11-12] MEDS ORDERED: PANTOPRAZOLE SODIUM IV 40 MG VIAL IV ONE (15:42)
[2020-11-12] MEDS ORDERED: SCOPOLAMINE PATCH 1.5MG 1 EA TD ONE (15:43)
--- NOTE | 2020-11-12 16:11 | ED.PDOC ---
History of Present Illness - General Chief Complaint: Headache Stated Complaint: Headache, N/V Time Seen by Provider: 11/12/20 12:31 Source: patient Exam Limitations: no limitations - History of Present Illness Initial Comments: The patient is a 65-year-old female presented emergency room secondary to the migraine headache that she has had for a couple of days as well as nausea and vomiting for the last couple of days. The patient is actually had on further discussions the nausea and vomiting for a much longer period of time. She is actually been seen by her primary care doctor, Dr. Rodriguez for this and has been referred to our general surgeon, Dr. Allison for an upper endoscopy several weeks ago. The concern was for possibly some esophageal pathology apparently. The patient is not had any fevers or chills. The headache is bitemporal like her migraines normally are. They are associated with nausea and vomiting like her migraines normally are. She was however unable to hold down her Maxalt yesterday which normally controls her migraines. No blood or bile in the vomitus. No abdominal pain. The patient refuses a coronavirus swab. No syncope or near syncope. No chest pain. The patient insists on sniffing rubbing alcohol that she brought to reduce her nausea reflex. Migraine headache is otherwise typical for her. No new features. No blood thinners. No focal neurological changes. Timing/Duration: unsure Severity: moderate Improving Factors: nothing Worsening Factors: eating Associated Symptoms: headaches, loss of appetite, malaise, nausea/vomiting Allergies/Adverse Reactions: Allergies Acetaminophen [From Tylenol] Allergy (Verified 11/12/20 13:11) Fentanyl Allergy (Verified 11/12/20 13:11) Gabapentin [From Neurontin] Allergy (Verified 11/12/20 13:11) Hydrocodone Allergy (Verified 11/12/20 13:11) Methadone Allergy (Verified 11/12/20 13:11) Morphine Allergy (Verified 11/12/20 13:11) Morphine and Related Allergy (Verified 11/12/20 13:11) Oxycodone [From Oxycontin] Allergy (Verified 11/12/20 13:11) Trazodone Allergy (Verified 11/12/20 13:11) Ketorolac Tromethamine [From Toradol] Adverse Reaction (Verified 11/12/20 13:11) pt states she dosen't know if she has ever had toradol. she just dosent like how she feels with NSAIDS given today with no reactions, after test dose. Home Medications: Ambulatory Orders Clobetasol Propionate 0.05 % EX PRN 11/02/14 Clonazepam [Klonopin] 1 mg PO TID 11/02/14 Diclofenac Sodium (Topical) [Voltaren] 1 % TD PRN 11/02/14 Promethazine Tab [Phenergan Tablet] 25 mg PO Q6H PRN 11/02/14 Losartan Potassium & Hydrochlo [Losartan Potassium/Hydroc 100-12.5 mg] 1 tab PO DAILY 06/23/19 Conjugated Estrogens [Premarin] 0.625 mg PO JOY-OTH-DAY 09/02/19 Rizatriptan Benzoate [Maxalt] 10 mg PO PRN PRN 09/02/19 Zolpidem Tartrate [Ambien] 10 mg PO BEDTIME 09/02/19 Cyclobenzaprine HCl [Flexeril] 5 mg PO PRN 06/24/20 Diclofenac Sodium [Voltaren] 75 mg PO QPM 06/24/20 Duloxetine HCl [Cymbalta] 60 mg PO QAM 06/24/20 Nicotine Patch 21 mg [Habitrol Patch 21mg] 21 mg TOP DAILY 06/24/20 Ziprasidone HCl [Geodon] 40 mg PO QPM 06/24/20 Review of Systems - Review of Systems Constitutional: States: malaise EENTM: States: no symptoms reported Respiratory: States: no symptoms reported Cardiology: States: no symptoms reported Gastrointestinal/Abdominal: States: nausea, vomiting Genitourinary: States: no symptoms reported Musculoskeletal: States: no symptoms reported Skin: States: no symptoms reported Neurological: States: headache Endocrine: States: no symptoms reported All other Systems: No Change from Baseline Past Medical History (General) - Patient Medical History Hx Seizures: No Hx Stroke: No Hx Dementia: No Hx Asthma: No Hx of COPD: No Hx Cardiac Disorders: No Hx Congestive Heart Failure: No Hx Pacemaker: No Hx Hypertension: Yes Hx Thyroid Disease: No Hx Diabetes: No Hx Gastroesophageal Reflux: Yes Hx Renal Disease: No Hx Cancer: No Hx of HIV: No Hx Hepatitis C: No Hx MRSA: No Surgical History: no surgical history - Vaccination History Hx Tetanus, Diphtheria Vaccination: No Hx Influenza Vaccination: No Hx Pneumococcal Vaccination: No - Social History Hx Tobacco Use: No Hx Chewing Tobacco Use: No Hx Alcohol Use: No Hx Substance Use: No Hx Substance Use Treatment: No Hx Depression: No Hx Physical Abuse: No Hx Emotional Abuse: No Hx Suspected Abuse: No - Female History Patient is a Female of Child Bearing Age (10 -59 yrs old): No Patient : No Family Medical History - Family History Mother Family History: No Known Living Status: Hx Family Asthma: No Hx Family Hypertension: Yes - mom and brother Hx Family Diabetes: Yes - brother Physical Exam - Physical Exam General Appearance: Alert, Anxious Eye Exam: bilateral normal Ears, Nose, Throat: hearing grossly normal, normal pharynx Neck: full range of motion, supple Respiratory: lungs clear, normal breath sounds, no respiratory distress, no accessory muscle use Cardiovascular/Chest: normal peripheral pulses, regular rate, rhythm - Borderline tachycardia., no edema Peripheral Pulses: radial,right: 2+, radial,left: 2+ Gastrointestinal/Abdominal: non tender - Obese, soft Rectal Exam: deferred Back Exam: no CVA tenderness, no vertebral tenderness Extremity: non-tender, normal inspection, no pedal edema, normal capillary refill 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 The patient was very difficult and refused multiple therapies in her treatment and ultimately left AGAINST MEDICAL ADVICE. The patient did have significant dehydration and received 2 L of IV fluids. She also had significant hypokalemia which may have been contributing to her symptoms but only received 20 mEq of potassium IV before she left. She refused a second 20 mEq infusion and she refused oral potassium. She also refused Maalox and dexamethasone. She did have a migraine treated with Phenergan, the IV fluids and Demerol. She refused the sumatriptan. No further vomiting by the time she left. She did refuse a dexamethasone for the further nausea. She does need to keep her follow-up with general surgery and her primary care doctor for what is likely esophageal longer-term pathology. The patient left AGAINST MEDICAL ADVICE before work-up and treatment were completed. I was unable to write her out acid reducing medications before she left. adriane magana [id number] - Results/Orders Results/Orders: The patient refuses coronavirus testing. The patient refused oral potassium. The patient refused a second dose of IV potassium. The patient refused the dexamethasone. Abdominal series shows no acute pathology. Foreign body over the right upper quadrant is noted on x-ray. Laboratory Results - last 24 hr 11/12/20 11/12/20 11/12/20 12:40 12:40 12:40 WBC 11.4 H RBC 5.27 Hgb 15.5 Hct 45.8 MCV 86.9 MCH 29.4 MCHC 33.8 RDW 13.4 Plt Count 288 MPV 8.3 Absolute Neuts (auto) 5.30 Absolute Lymphs (auto) 5.20 H Absolute Monos (auto) 0.70 Absolute Eos (auto) 0.20 Absolute Basos (auto) 0.10 Neutrophils % 46.2 Lymphocytes % 45.1 Monocytes % 6.0 Eosinophils % 1.7 Basophils % 1.0 Sodium 139 Potassium 2.9 L Chloride 97 L Carbon Dioxide 27 Anion Gap 17.9 BUN 11 Creatinine 1.01 BUN/Creatinine Ratio 10.9 Random Glucose 171 H Serum Osmolality 281.0 Lactic Acid 4.0 H* Calcium 9.1 Magnesium 1.9 Total Bilirubin 0.8 AST 44 H ALT 20 Alkaline Phosphatase 105 Creatine Kinase 65 CK-MB (CK-2) 1.3 CK-MB (CK-2) % Not Reportable Troponin I 0.02 Serum Total Protein 8.3 H Albumin 4.1 Globulin 4.2 H Albumin/Globulin Ratio 1.0 L Amylase 25 L Lipase 28 Departure - Departure Clinical Impression: Hypokalemia, Dehydration, Esophageal dysmotility, Lactic acidosis Migraine headache Qualifiers: Migraine type: unspecified Status migrainosus presence: without status migrainosus Intractability: not intractable Qualified Code(s): G43.909 - Migraine, unspecified, not intractable, without status migrainosus Disposition: Left Against Medical Advice Condition: Fair Departure Forms: ED Discharge - Pt. Copy, Patient Portal Self Enrollment Diet: other - Pured diet Activity: increase activity as tolerated Referrals: FATOUMATA RODRIGUEZ [Primary Care Provider] - 1-2 Weeks Home Medications: Ambulatory Orders Clobetasol Propionate 0.05 % EX PRN 11/02/14 Clonazepam [Klonopin] 1 mg PO TID 11/02/14 Diclofenac Sodium (Topical) [Voltaren] 1 % TD PRN 11/02/14 Promethazine Tab [Phenergan Tablet] 25 mg PO Q6H PRN 11/02/14 Losartan Potassium & Hydrochlo [Losartan Potassium/Hydroc 100-12.5 mg] 1 tab PO DAILY 06/23/19 Conjugated Estrogens [Premarin] 0.625 mg PO JOY-OTH-DAY 09/02/19 Rizatriptan Benzoate [Maxalt] 10 mg PO PRN PRN 09/02/19 Zolpidem Tartrate [Ambien] 10 mg PO BEDTIME 09/02/19 Cyclobenzaprine HCl [Flexeril] 5 mg PO PRN 06/24/20 Diclofenac Sodium [Voltaren] 75 mg PO QPM 06/24/20 Duloxetine HCl [Cymbalta] 60 mg PO QAM 06/24/20 Nicotine Patch 21 mg [Habitrol Patch 21mg] 21 mg TOP DAILY 06/24/20 Ziprasidone HCl [Geodon] 40 mg PO QPM 06/24/20
[2020-11-12 16:20] VITALS: BP 139/94; O2SAT 98
== END 2020-11-12 16:20 | disposition left against medical advice (07) ==
LOC: ER 12:27
DX: G43.909 Migraine, unspecified, not intractable, without status migrainosus (principal); E87.6 Hypokalemia; E86.0 Dehydration; E87.2 Acidosis; K22.8 Other specified diseases of esophagus; I10 Essential (primary) hypertension; K21.9 Gastro-esophageal reflux disease without esophagitis; Z53.29 Procedure and treatment not carried out because of patient's decision for other reasons; Z79.899 Other long term (current) drug therapy; Z88.5 Allergy status to narcotic agent; Z88.8 Allergy status to other drugs, medicaments and biological substances; Z88.6 Allergy status to analgesic agent
CPT/HCPCS: 36415; 74019; 80053; 82150; 82550; 82553; 83605; 83690; 83735; 84484; 85025; A4216; J2175; J2405; J2550; J3480; J7030

== ENCOUNTER 2020-11-22 06:16 | Emergency (ER) | payer MEDICARE, MEDICAID ==
[2020-11-22] MEDS ORDERED: SODIUM CHLORIDE 0.9% 1000ML 1,000 ML IVS ONE (06:25)
[2020-11-22] MEDS ORDERED: DEXAMETHASONE INJ 10 MG/ML VIAL IV ONE (06:25)
[2020-11-22] MEDS ORDERED: MEPERIDINE HCL 50 MG/ML VIAL IV ONE (06:26)
[2020-11-22] MEDS ORDERED: PROMETHAZINE HCL INJ 12.5 MG in SODIUM CHLORIDE 0.9% 50ML 50 ML IVPB ONE (06:26)
--- NOTE | 2020-11-22 06:30 | ED.PDOC ---
History of Present Illness - General Chief Complaint: Headache Time Seen by Provider: 11/22/20 06:25 Source: patient, RN notes reviewed, Vital Signs reviewed Additional Information: 65-year-old female, presents to the ER because of headache, patient states hypertension and a long history of migraines patient has been seen about 5 days ago for the same complaint, patient admits photophobia phonophobia nausea and she stated that the headache is worse when she vomits. Denies any fever denies any neck pain, Stated that the only thing that helps with her headache is Demerol, and she refused to take any other medications, I discussed with this patient that Demerol is not a migraine medication, and the potential for addiction. Usually or typically this medications are not used for headache, but patient stated that this is the only helps and she would not take any other medication patient has an hx of hypertension and is a former smoker this patient has never been evaluated by a neurologist - History of Present Illness Timing/Duration: 1-3 hours, constant Quality: constant, pressure Recent Head Trauma: no recent headache/trauma Improving Factors: nothing Worsening Factors: nothing Associated Symptoms: denies symptoms Allergies/Adverse Reactions: Allergies Acetaminophen [From Tylenol] Allergy (Verified 11/12/20 13:11) Fentanyl Allergy (Verified 11/12/20 13:11) Gabapentin [From Neurontin] Allergy (Verified 11/12/20 13:11) Hydrocodone Allergy (Verified 11/12/20 13:11) Methadone Allergy (Verified 11/12/20 13:11) Morphine Allergy (Verified 11/12/20 13:11) Morphine and Related Allergy (Verified 11/12/20 13:11) Oxycodone [From Oxycontin] Allergy (Verified 11/12/20 13:11) Trazodone Allergy (Verified 11/12/20 13:11) Ketorolac Tromethamine [From Toradol] Adverse Reaction (Verified 11/12/20 13:11) pt states she dosen't know if she has ever had toradol. she just dosent like how she feels with NSAIDS given today with no reactions, after test dose. Home Medications: Ambulatory Orders Clobetasol Propionate 0.05 % EX PRN 11/02/14 Clonazepam [Klonopin] 1 mg PO TID 11/02/14 Diclofenac Sodium (Topical) [Voltaren] 1 % TD PRN 11/02/14 Promethazine Tab [Phenergan Tablet] 25 mg PO Q6H PRN 11/02/14 Losartan Potassium & Hydrochlo [Losartan Potassium/Hydroc 100-12.5 mg] 1 tab PO DAILY 06/23/19 Conjugated Estrogens [Premarin] 0.625 mg PO JOY-OTH-DAY 09/02/19 Rizatriptan Benzoate [Maxalt] 10 mg PO PRN PRN 09/02/19 Zolpidem Tartrate [Ambien] 10 mg PO BEDTIME 09/02/19 Cyclobenzaprine HCl [Flexeril] 5 mg PO PRN 06/24/20 Diclofenac Sodium [Voltaren] 75 mg PO QPM 06/24/20 Duloxetine HCl [Cymbalta] 60 mg PO QAM 06/24/20 Nicotine Patch 21 mg [Habitrol Patch 21mg] 21 mg TOP DAILY 06/24/20 Ziprasidone HCl [Geodon] 40 mg PO QPM 06/24/20 Review of Systems - Review of Systems Constitutional: States: no symptoms reported EENTM: States: no symptoms reported Respiratory: States: no symptoms reported Cardiology: States: no symptoms reported Gastrointestinal/Abdominal: States: nausea, vomiting Genitourinary: States: no symptoms reported Musculoskeletal: States: no symptoms reported Skin: States: no symptoms reported Neurological: States: no symptoms reported Endocrine: States: no symptoms reported Hematologic/Lymphatic: States: no symptoms reported Past Medical History (General) - Patient Medical History Hx Seizures: No Hx Stroke: No Hx Dementia: No Hx Asthma: No Hx of COPD: No Hx Cardiac Disorders: No Hx Congestive Heart Failure: No Hx Pacemaker: No Hx Hypertension: Yes Hx Thyroid Disease: No Hx Diabetes: No Hx Gastroesophageal Reflux: Yes Hx Renal Disease: No Hx Cancer: No Hx of HIV: No Hx Hepatitis C: No Hx MRSA: No - Vaccination History Hx Tetanus, Diphtheria Vaccination: No Hx Influenza Vaccination: No Hx Pneumococcal Vaccination: No - Social History Hx Tobacco Use: No Hx Chewing Tobacco Use: No Hx Alcohol Use: No Hx Substance Use: No Hx Substance Use Treatment: No Hx Depression: No Hx Physical Abuse: No Hx Emotional Abuse: No Hx Suspected Abuse: No - Female History Patient : No Family Medical History - Family History Mother Family History: No Known Living Status: Hx Family Asthma: No Hx Family Hypertension: Yes - mom and brother Hx Family Diabetes: Yes - brother Physical Exam - Physical Exam General Appearance: Obvious distress, Well Developed Eyes, Ears, Nose, Throat Exam: PERRL/EOMI Neck: non-tender, full range of motion, supple, normal inspection, trachea midline Cardiovascular/Chest: normal peripheral pulses, regular rate, rhythm, no edema, no gallop, no JVD, no murmur Respiratory: chest non-tender, lungs clear, normal breath sounds, no respiratory distress, no accessory muscle use Gastrointestinal/Abdominal: normal bowel sounds, non tender, soft, no organomegaly, no pulsatile mass Extremity: normal range of motion, non-tender, normal inspection, no pedal edema, no calf tenderness 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 Headache is general, patient came in with her marble rubber, will concern about the potential for addiction especially with this medication and with no that this medication is not to be used first-line for headaches. I did provide some information about why these medications are dangerous. Medication can cause rebound headache, and also he can blunt the ability for other antimigraine medications to work. I discussed with the patient and the marble rubber that she needs to see neurologist as soon as possible, for the treatment of migraines, patient has no neurological deficit no meningeal signs no nuchal rigidity and major red flags 11/22/20 06:48 Departure - Departure Clinical Impression: Headache Qualifiers: Headache type: unspecified Headache chronicity pattern: chronic headache Intractability: intractable Qualified Code(s): R51.9 - Headache, unspecified Disposition: Discharge to Home or Self Care Condition: Fair Departure Forms: ED Discharge - Pt. Copy, Patient Portal Self Enrollment Instructions: DI for Headache, Headache, Adult Referrals: JUAN OVALLE MD [Consulting Staff] - 1-2 Days FATOUMATA WILEY [Primary Care Provider] - 1-2 Weeks NELSON WRIGHT [Referring] - 1-2 Days Home Medications: Ambulatory Orders Clobetasol Propionate 0.05 % EX PRN 11/02/14 Clonazepam [Klonopin] 1 mg PO TID 11/02/14 Diclofenac Sodium (Topical) [Voltaren] 1 % TD PRN 11/02/14 Promethazine Tab [Phenergan Tablet] 25 mg PO Q6H PRN 11/02/14 Losartan Potassium & Hydrochlo [Losartan Potassium/Hydroc 100-12.5 mg] 1 tab PO DAILY 06/23/19 Conjugated Estrogens [Premarin] 0.625 mg PO JOY-OTH-DAY 09/02/19 Rizatriptan Benzoate [Maxalt] 10 mg PO PRN PRN 09/02/19 Zolpidem Tartrate [Ambien] 10 mg PO BEDTIME 09/02/19 Cyclobenzaprine HCl [Flexeril] 5 mg PO PRN 06/24/20 Diclofenac Sodium [Voltaren] 75 mg PO QPM 06/24/20 Duloxetine HCl [Cymbalta] 60 mg PO QAM 06/24/20 Nicotine Patch 21 mg [Habitrol Patch 21mg] 21 mg TOP DAILY 06/24/20 Ziprasidone HCl [Geodon] 40 mg PO QPM 06/24/20 Additional Instructions: Please return to the ER if severe headache, nausea, vomiting, altered mental status involuntary movements neck pain fever chills or other concerns, please follow-up with neurologist as soon as possible
[2020-11-22 08:06] VITALS: BP 109/80; TEMP 98.1; O2SAT 97
== END 2020-11-22 07:55 | disposition home or self-care (01) ==
LOC: ER 06:16
DX: R51.9 Headache, unspecified (principal); H53.149 Visual discomfort, unspecified; R11.2 Nausea with vomiting, unspecified; I10 Essential (primary) hypertension; K21.9 Gastro-esophageal reflux disease without esophagitis; Z87.891 Personal history of nicotine dependence; Z79.899 Other long term (current) drug therapy; Z88.6 Allergy status to analgesic agent; Z88.5 Allergy status to narcotic agent; Z88.8 Allergy status to other drugs, medicaments and biological substances
CPT/HCPCS: A4216; J1100; J2175; J2550; J7030

== ENCOUNTER 2020-11-25 22:37 | Emergency (ER) | payer MEDICARE, MEDICAID ==
--- NOTE | 2020-11-25 22:44 | ED.PDOC ---
History of Present Illness - General Time Seen by Provider: 11/25/20 22:43 Source: patient Exam Limitations: no limitations - History of Present Illness Initial Comments: Patient complains of vomiting today for 1 hour. She has had similar symptoms intermittently for 3 weeks. Her vomiting has not been controlled by prescription of Phenergan which she is currently taking. Patient denies diarrhea. She denies fever or chills. She denies known exposure to COVID-19. Patient states she has a headache which occurred after the onset of her vomiting. The headache is sudden and is typical of her usual migraines. She denies any weakness numbness syncope or acute neurological symptoms. Patient has taken Maxalt for her headache without relief. Patient denies significant abdominal pain. Timing/Duration: 1 hour Severity: severe Improving Factors: nothing Worsening Factors: nothing Associated Symptoms: headaches, nausea/vomiting Allergies/Adverse Reactions: Allergies Acetaminophen [From Tylenol] Allergy (Verified 11/24/20 11:32) Fentanyl Allergy (Verified 11/24/20 11:32) Gabapentin [From Neurontin] Allergy (Verified 11/24/20 11:32) Hydrocodone Allergy (Verified 11/24/20 11:32) Methadone Allergy (Verified 11/24/20 11:32) Morphine Allergy (Verified 11/24/20 11:32) Morphine and Related Allergy (Verified 11/24/20 11:32) Oxycodone [From Oxycontin] Allergy (Verified 11/24/20 11:32) Trazodone Allergy (Verified 11/24/20 11:32) Ketorolac Tromethamine [From Toradol] Adverse Reaction (Verified 11/24/20 11:32) pt states she dosen't know if she has ever had toradol. she just dosent like how she feels with NSAIDS given today with no reactions, after test dose. Home Medications: Ambulatory Orders Clobetasol Propionate 0.05 % EX PRN 11/02/14 Clonazepam [Klonopin] 1 mg PO TID 11/02/14 Diclofenac Sodium (Topical) [Voltaren] 1 % TD PRN 11/02/14 Promethazine Tab [Phenergan Tablet] 25 mg PO Q6H PRN 11/02/14 Losartan Potassium & Hydrochlo [Losartan Potassium/Hydroc 100-12.5 mg] 1 tab PO DAILY 06/23/19 Conjugated Estrogens [Premarin] 0.625 mg PO JOY-OTH-DAY 09/02/19 Rizatriptan Benzoate [Maxalt] 10 mg PO PRN PRN 09/02/19 Zolpidem Tartrate [Ambien] 10 mg PO BEDTIME 09/02/19 Cyclobenzaprine HCl [Flexeril] 5 mg PO PRN 06/24/20 Diclofenac Sodium [Voltaren] 75 mg PO QPM 06/24/20 Duloxetine HCl [Cymbalta] 60 mg PO QAM 06/24/20 Nicotine Patch 21 mg [Habitrol Patch 21mg] 21 mg TOP DAILY 06/24/20 Ziprasidone HCl [Geodon] 40 mg PO QPM 06/24/20 metFORMIN HCL [Glucophage] 500 mg PO BID #60 tab 11/22/20 Metoclopramide Tab [Reglan Tab] 10 mg PO Q6H 7 Days #30 tab 11/26/20 Past Medical History (General) - Patient Medical History Hx Seizures: No Hx Stroke: No Hx Dementia: No Hx Asthma: No Hx of COPD: No Hx Cardiac Disorders: No Hx Congestive Heart Failure: No Hx Pacemaker: No Hx Hypertension: Yes Hx Thyroid Disease: No Hx Diabetes: No Hx Gastroesophageal Reflux: Yes Hx Renal Disease: No Hx Cancer: No Hx of HIV: No Hx Hepatitis C: No Hx MRSA: No - Vaccination History Hx Tetanus, Diphtheria Vaccination: No Hx Influenza Vaccination: No Hx Pneumococcal Vaccination: No - Social History Hx Tobacco Use: No Hx Chewing Tobacco Use: No Hx Alcohol Use: No Hx Substance Use: No Hx Substance Use Treatment: No Hx Depression: No Hx Physical Abuse: No Hx Emotional Abuse: No Hx Suspected Abuse: No - Female History Patient : No Family Medical History - Family History Mother Family History: No Known Living Status: Hx Family Asthma: No Hx Family Hypertension: Yes - mom and brother Hx Family Diabetes: Yes - brother Physical Exam - Physical Exam General Appearance: Alert, Anxious, Obvious distress, Other - Vomiting And gagging Eye Exam: bilateral normal Ears, Nose, Throat: hearing grossly normal, normal ENT inspection, other - Mucous membranes are moist Neck: non-tender, full range of motion Respiratory: normal breath sounds Cardiovascular/Chest: regular rate, rhythm Gastrointestinal/Abdominal: non tender, soft, other - Bowel sounds are diminished Back Exam: normal inspection, no CVA tenderness Extremity: normal range of motion, no pedal edema, no calf tenderness Neurologic: baker second II-XII nml as tested, no motor/sensory deficits, oriented x 3, other - No past pointing. Romberg, 1 foot balance, tandem gait all steady. Skin Exam: normal color Progress - Progress Progress: 11/25/20 22:57 IV normal saline 1 L infusion. Zofran 4 mg, Phenergan 12.5 mg, ketorolac 15 mg IV given. 11/26/20 00:09 Ativan 1 mg IV given. Patient is now free of headache and nausea and vomiting. She is amenable to discharge. Medical decision making 65-year-old female with a history of migraine headaches and diabetes with hypertension. She is having recurrent episodes of nausea vomiting and migraine headaches. Patient's headache today is typical of her prior migraines for which she does have medications. Nausea vomiting were controlled in emergency department and she does not have any evidence of volume loss for dehydration. Patient does not in DKA. She is suitable for outpatient follow-up with her primary acute care nursing assistant. - Results/Orders Results/Orders: Rapid nasal swab for COVID-19 negative. Laboratory Results - last 24 hr 11/25/20 11/25/20 23:00 23:00 WBC 9.4 RBC 4.93 Hgb 14.4 Hct 42.6 MCV 86.5 MCH 29.2 MCHC 33.8 RDW 13.5 Plt Count 302 MPV 8.1 Absolute Neuts (auto) 4.60 Absolute Lymphs (auto) 3.50 H Absolute Monos (auto) 1.00 H Absolute Eos (auto) 0.20 Absolute Basos (auto) 0.00 Neutrophils % 49.2 Lymphocytes % 37.1 Monocytes % 10.7 H Eosinophils % 2.5 Basophils % 0.5 Sodium 144 Potassium 3.1 L Chloride 105 Carbon Dioxide 26 Anion Gap 16.1 BUN 12 Creatinine 1.04 BUN/Creatinine Ratio 11.5 Random Glucose 180 H Serum Osmolality 291.1 Calcium 8.9 Total Bilirubin 0.8 AST 99 H ALT 33 Alkaline Phosphatase 122 H Serum Total Protein 8.6 H Albumin 4.1 Globulin 4.5 H Albumin/Globulin Ratio 0.9 L Vital Signs - 24 hr 11/25/20 11/26/20 11/26/20 23:05 00:00 00:19 Temperature 98.2 F 98.4 F 98.4 F Pulse Rate 104 H Pulse Rate [ 104 H 89 92 H Left Radial] Respiratory 22 18 18 Rate Blood Pressure 162/109 158/109 158/102 [Left Arm] O2 Sat by Pulse 99 95 95 Oximetry Departure - Departure Clinical Impression: Migraine headache, Hypertension, Vomiting ICD-10 Supporting Text: Recurrent migraine headaches. Recurrent and intractable vomiting. Time of Disposition: 00:11 Disposition: Discharge to Home or Self Care Condition: Good Departure Forms: ED Discharge - Pt. Copy, Patient Portal Self Enrollment Instructions: Migraines (DC), Nausea and Vomiting, Adult (DC) Diet: other - Clear liquid diet until nausea and vomiting subside, then gradually advance diet as tolerated. Referrals: FATOUMATA WILEY [Primary Care Provider] - 1-2 Weeks Prescriptions: Metoclopramide Tab [Reglan Tab] 10 mg PO Q6H 7 Days #30 tab Home Medications: Ambulatory Orders Clobetasol Propionate 0.05 % EX PRN 11/02/14 Clonazepam [Klonopin] 1 mg PO TID 11/02/14 Diclofenac Sodium (Topical) [Voltaren] 1 % TD PRN 11/02/14 Promethazine Tab [Phenergan Tablet] 25 mg PO Q6H PRN 11/02/14 Losartan Potassium & Hydrochlo [Losartan Potassium/Hydroc 100-12.5 mg] 1 tab PO DAILY 06/23/19 Conjugated Estrogens [Premarin] 0.625 mg PO JOY-OTH-DAY 09/02/19 Rizatriptan Benzoate [Maxalt] 10 mg PO PRN PRN 09/02/19 Zolpidem Tartrate [Ambien] 10 mg PO BEDTIME 09/02/19 Cyclobenzaprine HCl [Flexeril] 5 mg PO PRN 06/24/20 Diclofenac Sodium [Voltaren] 75 mg PO QPM 06/24/20 Duloxetine HCl [Cymbalta] 60 mg PO QAM 06/24/20 Nicotine Patch 21 mg [Habitrol Patch 21mg] 21 mg TOP DAILY 06/24/20 Ziprasidone HCl [Geodon] 40 mg PO QPM 06/24/20 metFORMIN HCL [Glucophage] 500 mg PO BID #60 tab 11/22/20 Metoclopramide Tab [Reglan Tab] 10 mg PO Q6H 7 Days #30 tab 11/26/20
[2020-11-25] MEDS ORDERED: SODIUM CHLORIDE 0.9% 1000ML 1,000 ML IVS ONE (22:52)
[2020-11-25] MEDS ORDERED: ONDANSETRON INJ 4 MG/2 ML VIAL IV ONE (22:53)
[2020-11-25] MEDS ORDERED: KETOROLAC TROMETHAMINE INJ 30 MG/ML VIAL IV ONE (22:53)
[2020-11-25] MEDS ORDERED: PROMETHAZINE HCL INJ 12.5 MG in SODIUM CHLORIDE 0.9% 50ML 50 ML IVPB ONE (22:53)
[2020-11-25] MEDS ORDERED: PROMETHAZINE HCL INJ 25 MG/ML VIAL ONE (22:55)
[2020-11-25] MEDS ORDERED: SODIUM CHL 0.9% 50ML MIN-BAG+ 50 ML IVPB ONE (22:56)
[2020-11-25] MEDS ORDERED: ONDANSETRON INJ 4 MG/2 ML VIAL ONE (22:56)
[2020-11-25] MEDS ORDERED: SODIUM CHLORIDE 0.9% 1000ML 1,000 ML ONE (22:56)
[2020-11-25] MEDS ORDERED: FAMOTIDINE INJ 10 MG/ML VIAL IV ONE (23:31)
[2020-11-25] MEDS ORDERED: FAMOTIDINE IV PREMIX 50 ML IVPB ONE (23:41)
[2020-11-25] MEDS ORDERED: FAMOTIDINE IV PREMIX 20 MG in PREMIX BAG 1 BAG IVPB ONE (23:45)
[2020-11-26 00:15] VITALS: TEMP 98.4; O2SAT 95
[2020-11-26 00:20] VITALS: BP 158/102
== END 2020-11-26 00:20 | disposition home or self-care (01) ==
LOC: ER 22:37
DX: G43.909 Migraine, unspecified, not intractable, without status migrainosus (principal); I10 Essential (primary) hypertension; E11.9 Type 2 diabetes mellitus without complications; K21.9 Gastro-esophageal reflux disease without esophagitis; Z20.822 Contact with and (suspected) exposure to COVID-19; Z79.84 Long term (current) use of oral hypoglycemic drugs; Z79.899 Other long term (current) drug therapy; Z88.5 Allergy status to narcotic agent; Z88.8 Allergy status to other drugs, medicaments and biological substances; Z88.6 Allergy status to analgesic agent
CPT/HCPCS: 80053; 85025; 87635; J1885; J2060; J2405; J2550; J3490; J7030; J7050

== ENCOUNTER 2020-11-26 05:46 | Day surgery (SDC) | payer MEDICARE, MEDICAID ==
[2020-11-26] MEDS ORDERED: PROPOFOL 200 MG/20 ML VIAL IV ONE (05:47)
[2020-11-26] MEDS ORDERED: LIDOCAINE 1% 10 ML VIAL INJ ONE (05:47)
[2020-11-26] MEDS ORDERED: LACTATED RINGERS 1,000 ML ONE (05:58)
[2020-11-26 13:16] VITALS: O2SAT 93
[2020-11-26 13:17] VITALS: BP 150/102; TEMP 97
--- NOTE | 2020-11-26 17:26 | OP ---
DATE OF PROCEDURE: 11/26/20 PREOPERATIVE DIAGNOSIS: 1. Dysphagia. POSTOPERATIVE DIAGNOSIS: 1. Gastritis. 2. Normal esophagus. PROCEDURE: 1. EGD. SURGEON: Gary Allison MD ANESTHESIA: General, Chon Gomez CRNA. FINDINGS: The esophagus appeared normal. The pylorus had one area of inflammation. The duodenum appeared normal. Retroflexion showed some retained food, but no evidence of ulcers throughout the stomach. COMPLICATIONS: None. ESTIMATED BLOOD LOSS: None. SPECIMEN: Biopsy of antrum. PLAN: Discharge. INDICATION: The patient gives a history of difficulty swallowing, both fluids and liquids and some sounds like gastritis or reflux symptoms. EGD was recommended. PROCEDURE: She was brought to the Operating Suite in supine position. General anesthesia was induced in the lateral position. Bite block in place. The scope was inserted without difficulty through to the third portion of the duodenum. Upon withdrawal, no duodenal mucosal abnormalities or ulcers were seen. We saw some redness in one patch area at the antrum that was biopsied. Retroflexion showed no evidence of significant hiatal hernia. The body, lesser and greater curvature appeared normal. A biopsied was taken in the antrum, in store representative. The GE junction appeared normal. She tolerated the procedure and was taken to Recovery to be discharged. #[id number] [facility]
== END 2020-11-26 13:20 | disposition home or self-care (01) ==
LOC: AMB 05:46
PROVIDERS: ATTEND Surgery
DX: K31.89 Other diseases of stomach and duodenum (principal); K29.70 Gastritis, unspecified, without bleeding; I10 Essential (primary) hypertension; F41.9 Anxiety disorder, unspecified; F32.9 Major depressive disorder, single episode, unspecified; Z88.5 Allergy status to narcotic agent; Z79.899 Other long term (current) drug therapy
CPT/HCPCS: 00731; 36415; 36416; 43239; 80320; 82948; 88305; J3490; J7120

== ENCOUNTER 2020-11-28 21:58 | Emergency (ER) | payer MEDICARE, MEDICAID ==
--- NOTE | 2020-11-28 22:10 | ED.PDOC ---
History of Present Illness - General Chief Complaint: GI Problem Time Seen by Provider: 11/28/20 21:59 Information Source: patient, RN notes reviewed, Vital Signs reviewed, EMS notes reviewed, EMS, old records Exam Limitations: no limitations - History of Present Illness Initial Comments: 65 yo F was seen earlier today with n/v, migraine. Was recommend she stay for admission due to hypokalemia and acute renal injury. Patient left AMA. Patient return via EMS, stating she told EMS to take her to [place]. Patient refuse evaluation here. Review of Systems - Review of Systems Constitutional: States: malaise. Denies: chills, fever EENTM: Denies: blurred vision Respiratory: Denies: cough, short of breath Cardiology: Denies: chest pain Gastrointestinal/Abdominal: States: nausea, vomiting. Denies: abdominal pain Genitourinary: Denies: dysuria Musculoskeletal: Denies: muscle pain Neurological: States: headache Endocrine: Denies: unexplained weight loss Past Medical History (General) - Patient Medical History Hx Seizures: No Hx Stroke: No Hx Dementia: No Hx Asthma: No Hx of COPD: No Hx Cardiac Disorders: No Hx Congestive Heart Failure: No Hx Pacemaker: No Hx Hypertension: No Hx Thyroid Disease: No Hx Diabetes: Yes Hx Gastroesophageal Reflux: No Hx Renal Disease: No Hx Cancer: No Hx of HIV: No Hx Hepatitis C: No Hx MRSA: No - Vaccination History Hx Tetanus, Diphtheria Vaccination: No Hx Influenza Vaccination: No Hx Pneumococcal Vaccination: No - Social History Hx Tobacco Use: No Hx Chewing Tobacco Use: No Hx Alcohol Use: No Hx Substance Use: No Hx Substance Use Treatment: No Hx Depression: No Hx Physical Abuse: No Hx Emotional Abuse: No Hx Suspected Abuse: No - Female History Patient : No Family Medical History - Family History Mother Family History: No Known Living Status: Hx Family Asthma: No Hx Family Hypertension: Yes - mom and brother Hx Family Diabetes: Yes - brother Physical Exam - Physical Exam General Appearance: Alert, Well Developed, Well Groomed, Well Hydrated, Well Nourished Eyes, Ears, Nose, Throat Exam: normal ENT inspection Neck: supple Neurologic: alert, other - no focal defcitis, stable, normal gait. Skin Exam: normal color Departure - Departure Clinical Impression: Nausea & vomiting Qualifiers: Vomiting type: unspecified Vomiting Intractability: unspecified Qualified Code(s): R11.2 - Nausea with vomiting, unspecified Time of Disposition: 22:10 Disposition: Left Against Medical Advice Departure Forms: ED Discharge - Pt. Copy, Patient Portal Self Enrollment Referrals: FATOUMATA WILEY [Primary Care Provider] - 1-2 Days Home Medications: Ambulatory Orders Clobetasol Propionate 0.05 % EX PRN 11/02/14 Clonazepam [Klonopin] 1 mg PO TID 11/02/14 Diclofenac Sodium (Topical) [Voltaren] 1 % TD PRN 11/02/14 Losartan Potassium & Hydrochlo [Losartan Potassium/Hydroc 100-12.5 mg] 1 tab PO DAILY 06/23/19 Conjugated Estrogens [Premarin] 0.625 mg PO JOY-OTH-DAY 09/02/19 Rizatriptan Benzoate [Maxalt] 10 mg PO PRN PRN 09/02/19 Zolpidem Tartrate [Ambien] 10 mg PO BEDTIME 09/02/19 Cyclobenzaprine HCl [Flexeril] 5 mg PO PRN 06/24/20 Diclofenac Sodium [Voltaren] 75 mg PO QPM 06/24/20 Duloxetine HCl [Cymbalta] 60 mg PO QAM 06/24/20 Nicotine Patch 21 mg [Habitrol Patch 21mg] 21 mg TOP DAILY 06/24/20 Ziprasidone HCl [Geodon] 40 mg PO QPM 06/24/20 metFORMIN HCL [Glucophage] 500 mg PO BID #60 tab 11/22/20 Metoclopramide Tab [Reglan Tab] 10 mg PO Q6H 7 Days #30 tab 11/26/20
[2020-11-28 22:17] VITALS: BP 174/131; TEMP 99.1; O2SAT 99
== END 2020-11-28 22:07 | disposition left against medical advice (07) ==
LOC: ER 21:58
DX: R11.2 Nausea with vomiting, unspecified (principal); R51.9 Headache, unspecified; E11.9 Type 2 diabetes mellitus without complications; Z53.29 Procedure and treatment not carried out because of patient's decision for other reasons